=== PATIENT | male | born 1955 | race Caucasian/White ===

== ENCOUNTER 2018-10-10 08:16 | Inpatient (IN) ==
--- NOTE | 2018-09-17 08:39 | History & Physical Report ---
Date of Service September 17, 2018 Date of Surgery: 10-10-18 Assessment & Plan (1) Localized osteoarthritis of right knee: Risks and benefits of procedure discussed in detail today, patient would like to proceed with a Right TKA @ [facility] as scheduled. will obtain cardiac and medical clearance prior to surgery as well as obtain PATs at [facility]. Will resume his home dose of Plavix and ASA post op, f/u 2 weeks post op for routine post- operative care and xray, sooner if having any problems. he is unsure at this time if he would like rehab vs HHPT due to having 13 steps in his home. we will see how he progress in PT. History of Present Illness Chief Complaint: Right knee pain Primary Care Provider: Kaylynn Salinas Mr Lucho Stern is a 63 year old male who complains of right knee pain, presents for pre-op evaluation prior to right total knee replacement on 10-10-18. He states that the symptoms have been chronic non-traumatic and occur intermittently. Currently the patient states that the symptoms are moderate. The pain is described as aching and dull. The symptoms occur intermittently. The patient is experiencing pain medially and anterior knee joint. He rates his worst pain as 8/10, currently 6/10. The symptoms are aggravated by ascending stairs, descending stairs, exercise, kneeling, daily activities, walking. Niranjan states that the symptoms are not relieved by anything in particular. In addition to knee pain he is also experiencing weakness. Patient has had no relief with NSAIDS. Patient has had Supartz injections with little to no relief. at this point has failed conservative measures and would like to proceed with right total knee replacement. Allergies Allergy/AdvReac Type Severity Reaction Status Date / Time Penicillins Allergy Unknown Unknown Verified 09/11/18 15:15 Home Medications Home Medications Medication Instructions Recorded Confirmed Type acetaminophen 1,300 mg PO Q12H PRN 09/11/18 09/11/18 History amlodipine [Norvasc] 10 mg PO QAM 09/11/18 09/11/18 History aspirin [Aspirin Low Dose] 81 mg PO QAM 09/11/18 09/11/18 History atorvastatin 40 mg PO PM 09/11/18 09/11/18 History clopidogrel [Plavix] 75 mg PO QAM 09/11/18 09/11/18 History diclofenac sodium 4 g TOPICAL BID PRN 09/11/18 09/11/18 History hydrochlorothiazide 12.5 mg PO QAM 09/11/18 09/11/18 History lisinopril 20 mg PO QAM 09/11/18 09/11/18 History lorazepam [Ativan] 0.5 mg PO TID PRN 09/11/18 09/11/18 History [id number]-ynwfyxqv-ajmouk 1 tab PO QDD 09/11/18 09/11/18 History [Multivitamin 50 Plus] tadalafil [Cialis] 5 mg PO QAM 09/11/18 09/11/18 History Past Med/Surg History Medical History Anxiety Asymptomatic PVCs Diverticular disease Glaucoma High cholesterol History of stroke 2013 - s/ loss strength left side; Elevated BP; Paraylsis left side; Sent to [facility] in [place]; Thrombectomy of brain. Currently residual is fine motor control of left hand Hypertension Osteoarthritis Surgical History History of surgical procedure on eye proper using laser Used to reduce pressure in both eyes Hx of arthroscopic knee surgery right Family History Aunt Family hx of colon cancer Social History Preferred Language: Vietnamese Communication Ability: Effective Beliefs That Will Affect Care: None Current Living Situation: Spouse Other Information That Helps Us Care for You: No Feels Safe at Home: Yes Safety Concerns: Feels Safe At This Time Smoking Status: Never smoker Hx Alcohol Use: Yes Hx Substance Use: No Review of Systems All systems reviewed & are unremarkable except as noted in HPI & below Constitutional: no fever, no chills and no sweats Respiratory: no cough and no dyspnea Cardiovascular: no chest pain, no dyspnea and no orthopnea Gastrointestinal: no nausea and no vomiting Physical Exam Vital Signs (Past 24 Hours): HT: 5ft 9in Wt: 111.7kg BP: 132/82 Pulse: 76 Constitutional: WD/WN, vitals as above no acute distress Respiratory: normal respiratory effort, lungs clear to auscultation Cardiovascular: RRR, no murmur, no edema Gastrointestinal (Abdomen): normal bowel sounds, soft, nontender, no hepatosplenomegaly Musculoskeletal: Right Knee Exam Ambulates with a limp, overall varus Alignment, no Atrophy or Ecchymosis, mild Effusion, Maximum tenderness Medial joint line and diffuse, negative patellar Apprehension , mild Crepitation with motion, Patella position Neutral, Manyd's Negative, Neda's - lateral positive, Neda's - medial positive, Posterior drawer- Negative, Anterior drawer Negative, Valgus stress Negative, Varus stress Negative, no Extensor lag, Pain with Active range of motion, also passive painful ROM, Range of motion 0/5/125. No pain with active/passive ROM of ankle. Lower Extremity Strength normal. Lower Extremity Neuro-vascular is normal Results & Data Diagnostic Findings Right Knee X-ray: Right knee series showing advanced degenerative changes to the right knee, narrowing of the medial compartment and patello-femoral joint with patellar spurring noted, findings showing joint space narrowing of the medial compartment and patello-femoral joint, osteophyte formation and subchondral sclerosis noted. overall varus alignment. no acute bony pathology noted.
--- NOTE | 2018-09-17 14:41 | Anesthesiology Consultation ---
Date of Service September 17, 2018 Assessment & Plan (1) Encounter for pre-operative examination: - Cardio= 09/03/18= "acceptable risk to proceed" - Per patient, states he was told okay to hold Plavix 7 days prior to surgery by prescriber Chart Review Chart Review: Acceptable Risk for Surgery and Patient seen in Pre Admission Testing Teaching & Discussion Pre-Anesthesia Teaching/Discussion Notes: Instructed NPO after midnight before surgery,except medications with 15 cc of water. Medication instructions provided according to the PAT guidelines. History Surgery Operation Date: 10/10/18 11:40 Proposed Procedures p Right Total Knee Arthroplasty - Tito Ramírez DO Height/Weight Height: 5 ft 9 in Weight: 115.2 kg Allergies Allergy/AdvReac Type Severity Reaction Status Date / Time Penicillins Allergy Unknown Unknown Verified 09/11/18 15:15 Medications Home Medications Medication Instructions Recorded Confirmed Last Taken acetaminophen 1,300 mg PO Q12H PRN 09/11/18 09/11/18 Unknown amlodipine [Norvasc] 10 mg PO QAM 09/11/18 09/11/18 Unknown aspirin [Aspirin Low Dose] 81 mg PO QAM 09/11/18 09/11/18 Unknown atorvastatin 40 mg PO PM 09/11/18 09/11/18 Unknown clopidogrel [Plavix] 75 mg PO QAM 09/11/18 09/11/18 Unknown diclofenac sodium 4 g TOPICAL BID PRN 09/11/18 09/11/18 Unknown hydrochlorothiazide 12.5 mg PO QAM 09/11/18 09/11/18 Unknown lisinopril 20 mg PO QAM 09/11/18 09/11/18 Unknown lorazepam [Ativan] 0.5 mg PO TID PRN 09/11/18 09/11/18 Unknown tbocqsfdtwvv-gjugdypc-mwcymm 1 tab PO QDD 09/11/18 09/11/18 Unknown [Multivitamin 50 Plus] tadalafil [Cialis] 5 mg PO QAM 09/11/18 09/11/18 Unknown Past Medical History Medical History Anxiety Diverticular disease Glaucoma High cholesterol History of stroke 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) S/P THROMBECTOMY + CEREBRAL ANGIOPLASTY; 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 Hypertension Obesity Osteoarthritis PVCs (premature ventricular contractions) OCCASIONAL PALPITATIONS Past Family History Family History Aunt Family hx of colon cancer Past Surgical History Surgical History History of brain surgery THROMBECTOMY + CEREBRAL ANGIOPLASTY 2013 2/2 CVA History of surgical procedure on eye proper using laser 2/2 [place] Hx of arthroscopic knee surgery RIGHT Past Anesthesia History No Hx of Anesthesia Complications and No Family Hx of Anesthesia Complications History of PONV No Motion Sickness Screening History of Motion Sickness: Yes Social History Smoking Status: Never smoker Do You Dip or Chew Tobacco: No Hx Alcohol Use: Yes Alcohol type: beer alcohol intake frequency: a few times a week Hx Substance Use: No Exercise / Class Metabolic Activity II 4-5 Yardwork/Stairs/Walk up hill Review of Systems Patient denies chest pain, shortness of breath, dyspnea on exertion, reflux, cough, wheezing, palpitations. Physical Exam Vital Signs VITALS BP 164/73 P 70 TEMP 98.2 SP02 93%ra RESP 18 PHYSICAL Full neck and c-spine range of motion. Full TMJ range of motion. TMD 3 finger breaths Mallampati Score 3 Dentition: missing sides Lungs: clear throughout to auscultation Cardiac: regular rate and rhythm, occasional extra beats, I/ systolic murmur Spine: normal Carotid arteries: negative bruit Extremities: no edema Thick neck Testing Electrocardiogram Date: 09/17/18 SR with frequent PVC's. NS IVCD. Chest X-Ray Date: 09/17/18 Findings: + NAD Echocardiogram Date: 08/28/18 LVEF 66%. Grade I DD. Trace to mild MR/TR. Close to high normal LV size with increase in wall thickness. Moderately technically difficult study 2/2 poor acoustic windows. Stress Test Date: 08/28/18 Type: nuclear (LEXISCAN) Lexiscan stress test negative for ischemia. No evidence of reversible ischemia. LVEF 50%. Dilated LV cavity. No ventricular or supraventricular ectopy noted with Lexiscan infusion. Laboratory Results Blood Type A Negative 09/17/18 15:05 Antibody Screen NEGATIVE 09/17/18 15:05 Hemoglobin A1c 6.0 % (4.5-5.6) H 09/17/18 15:05 Urine Color Yellow 09/17/18 Unknown Urine Appearance Clear (Clear) 09/17/18 Unknown Urine pH 6.0 (4.5-7.5) 09/17/18 Unknown Ur Specific [place] 1.014 (1.000-1.030) 09/17/18 Unknown Urine Protein Negative (Negative) 09/17/18 Unknown Urine Glucose (UA) Negative (Negative) 09/17/18 Unknown Urine Ketones Negative (Negative) 09/17/18 Unknown Urine Nitrite Negative (Negative) 09/17/18 Unknown Ur Leukocyte Esterase Negative (Negative) 09/17/18 Unknown Urine WBC (Auto) 0 /hpf (0-5) 09/17/18 Unknown Urine RBC (Auto) 5-10 /hpf (0-4) H 09/17/18 Unknown U Hyaline Cast (Auto) 0 /lpf (0-5) 09/17/18 Unknown U Epithel Cells (Auto) 0-5 /lpf (0-5) 09/17/18 Unknown Urine Bacteria (Auto) Negative (Negative) 09/17/18 Unknown 09/17/18 Unknown Urine Culture - Final Urine,Clean Catch Gram negative bacilli 09/17/18 URINE CULTURE no sensitivities to follow 08/22/18 WBC 7.76 H/H 14.6/44.2 PLATELETS 194 SODIUM 139 POTASSIUM 3.3 CHLORIDE 104 CO2 23.7 BUN 19.7 CREATININE 1.03 GLUCOSE 101 PT 11.2 PTT 24.9 INR 1.0
--- NOTE | 2018-09-17 15:00 | PAT Medication Instructions ---
Medication Instructions Date of Service September 17, 2018 Home Medications acetaminophen 1,300 mg PO Q12H PRN amlodipine [Norvasc] 10 mg PO QAM aspirin [Aspirin Low Dose] 81 mg PO QAM atorvastatin 40 mg PO PM clopidogrel [Plavix] 75 mg PO QAM diclofenac sodium 4 g TOPICAL BID PRN hydrochlorothiazide 12.5 mg PO QAM lisinopril 20 mg PO QAM lorazepam [Ativan] 0.5 mg PO TID PRN [id number]-[id number]-[id number] 1 tab PO QDD tadalafil [Cialis] 5 mg PO QAM ASK your prescriber and surgeon aspirin [Aspirin Low Dose] 81 mg PO QAM clopidogrel [Plavix] 75 mg PO QAM STOP taking 24 hours before surgery diclofenac sodium 4 g TOPICAL BID PRN DO NOT take the morning of surgery hydrochlorothiazide 12.5 mg PO QAM lisinopril 20 mg PO QAM tadalafil [Cialis] 5 mg PO QAM Take morning of surgery With a small sip of water, OTHERWISE NOTHING TO EAT OR DRINK AFTER MIDNIGHT: acetaminophen 1,300 mg PO Q12H PRN (okay to take up to 4 hours prior to surgery if needed) amlodipine [Norvasc] 10 mg PO QAM lorazepam [Ativan] 0.5 mg PO TID PRN (if needed) Take evening before surgery acetaminophen 1,300 mg PO Q12H PRN (if needed) atorvastatin 40 mg PO PM lorazepam [Ativan] 0.5 mg PO TID PRN (if needed) multivitamin 50 plus 1 tab PO QDD Other Notes If you have any questions please call us at [phone] or [phone] or [phone] or [phone]
--- NOTE | 2018-09-17 15:19 | XRay Report ---
XR chest Pre-admission PA/Lat CLINICAL HISTORY: pat preoperative COMPARISON STUDY: No previous studies for comparison. FINDINGS: The bones soft tissues and hemidiaphragms are normal. The cardiomediastinal silhouette is n ormal. The lungs are clear. The pulmonary vasculature is normal. IMPRESSION: Negative chest. The above report was generated using voice recognition software. It may contain grammatical, syntax or spelling errors. Electronically signed by: Luis Ayala M.D. 09/17/2018 3:18 PM
[2018-09-17 16:37] LABS: Appearance Urine Clear (Clear); Bacteria Urine Automated Negative (Negative); Bilirubin Urine Negative (Negative); Blood Urine 1+ (Negative); Cast Urine Automated 0 /lpf (0-5); Color Urine Yellow; Epithelial Cell Urine Auto 0-5 /lpf (0-5); Glucose Urine UA Negative (Negative); Ketones Urine Negative (Negative); Leukocyte Esterase Urine Negative (Negative); Nitrite Urine Negative (Negative); Protein Urine Negative (Negative); Specific Gravity Urine 1.014 (1.000-1.030); Urobilinogen Urine Negative (Negative); WBC Urine Automated 0 /hpf (0-5)
[2018-09-18 06:17] LABS: Estimated Average Glucose 126 mg/dl
[~2018-10-10 08:16] MED LIST: ACETAMINOPHEN 500 MG TAB PO SCH; BUPIVACAINE 0.5 % 5 MG/1 ML PF 10ML VIAL ONE; CLINDAMYCIN 600 MG/54 ML BAG IV SCH; CeleBREX 200 MG CAP PO SCH; FAMOTIDINE 20 MG TAB PO SCH; GABAPENTIN 300 MG x 2 PO SCH; LR 500ML BOLUS, THEN 15ML/HR IV SCH; METOCLOPRAMIDE HCL 10 MG TABLET PO SCH; ROPIVACAINE 0.5% 5 MG/ML 30 ML VIAL ONE; ROPIVACAINE 0.5% HCL/PF 150 MG, BUPIVACAINE 0.5% MPF 30 ML, EPINEPHrine 30MG/30ML (OR U... INFIL SCH; TRANEXAMIC ACID 1,000 MG **IV Intra-op IV SCH; TRANEXAMIC ACID 1,000 MG **IV Pre-op IV SCH; dexAMETHasone 4 MG TAB PO SCH
[2018-10-10] MEDS ORDERED: MIDAZOLAM HCL 1 MG/ML 2ML VIAL ONE (09:13)
[2018-10-10] MEDS ORDERED: fentaNYL citrate 100 MCG/2 ML VIAL ONE ×2 (09:13→11:47)
--- NOTE | 2018-10-10 09:49 | History & Physical Bridge Note ---
Date of Service October 10, 2018 History & Physical Bridge Note I have examined the patient, reviewed the History & Physical and in the interval since the performance of the History & Physical I have noted the following changes of clinical significance: no changes noted
[2018-10-10] MEDS ORDERED: ORTHO JOINT ANESTHETIC ONE (10:20)
[2018-10-10] MEDS ORDERED: POVIDONE-IODINE OP SOLN 30 ML BTL ONE (10:20)
[2018-10-10] MEDS ORDERED: BACITRACIN INJ 50,000 UNIT VIAL ONE (10:21)
[2018-10-10] MEDS ORDERED: LIDOCAINE HCL 2% 2 ML VIAL/AMP(20MG/ML) INFIL ONE (11:34)
[2018-10-10] MEDS ORDERED: SUCCINYLCHOLINE CHLORIDE 20 MG/ML 10 ML VIAL ONE (11:34)
[2018-10-10] MEDS ORDERED: PROPOFOL IV EMULSION 10 MG/ML 20 ML VIAL IV ONE (11:34)
[2018-10-10] MEDS ORDERED: ePHEDrine sulfate 50 MG/ML AMP IV PRN (11:44)
[2018-10-10] MEDS ORDERED: HYDROmorphone INJ 2 MG/ML SYR/VIAL IV PRN (11:44)
[2018-10-10] MEDS ORDERED: ATROPINE SULFATE 0.1 MG/ML 10ML SYR IV PRN (11:44)
[2018-10-10] MEDS ORDERED: ONDANSETRON INJ 2 MG/ML 2 ML VIAL ONE (11:52)
[2018-10-10] MEDS ORDERED: DEXAMETHASONE SOD INJ 4 MG/ML VIAL ONE ×2 (11:52→17:01)
--- NOTE | 2018-10-10 12:23 | Operative Report ---
Post Operative Report Pre & Post Diagnosis Operation Date: 10/10/18 11:00 Pre-Op Diagnosis: Right Knee Osteoarthritis Post-Op Diagnosis: Right Knee Osteoarthritis Procedure Operation Date: 10/10/18 11:00 Actual Procedures p Right Total Knee Arthroplasty(Right) utilizing [employer] journey 2 patient matched total knee arthroplasty size 6 femur 6 tibia 11 polyethylene 35 oval patella- Tito Ramírez DO Surgeon Tito Ramírez DO Consumer Loan Officer Chauncey CHAPMAN Estimated Blood Loss 5 Findings Consistent with Post-Op Diagnosis Patient presents with ongoing planes of pain about the right knee no response to conservative management times surgery above findings were noted patient had subchondral sclerosis marginal osteophytes subchondral cystic changes eburnated bone to bone changes tricompartmentally with varus alignment of the knee pseudo- ligamentous laxity as well as a moderate to large effusion Specimens Bone and cartilage Drains Medium bore Hemovac Complications none Disposition Accompanied Patient To Recovery: No Disposition: Recovery Room Indications Patient presents with severe DJD about the right knee no response to conservative management and physical therapy anti-inflammatories relative rest activity modification corticosteroid injections Visco supplementations presents at failing but conservative management the above noted intraoperative findings were noted. Description of Procedure After proper prepping and draping of the Right lower extremity anterior midline incision was made over the region of the extensor extensor mechanism after meticulous hemostasis was obtained and maintained in subcutaneous tissues a medial parapatellar incision was made The patella was subluxed lateralward the medial lateral gutter were cleaned from any hypertrophic synovitis and scar tissue of the distal femoral block was placed and the distal femoral osteotomy cut was made subsequently the chamfers anterior and posterior osteotomy cuts were made utilizing the 4-in-1 block the tibia was subsequently subluxed anteriorward medial and ateral meniscal remnants were excised in their entirety remnants of the anterior and posterior cruciate ligaments were excised in their entirety excellent exposure of the proximal tibia was obtained the tibial osteotomy guide was placed on the proximal tibial osteotomy cut was made once again the knee was irrigated with copious amounts of sterile saline solution the patella was subsequently everted lateralward thickened scar tissue around the patella was removed the patella was subsequently cut utilizing a freehand technique and was drilled prepared for final preparation and placement of patella socially flexion-extension gaps were checked and the equal and symmetric trials were placed to the appropriate femoral and tibial trials with poly-spacer being placed for equal flexion and extension gaps and full range of motion including extension to 0 and flexion to 140 the trial components after having been taken to recovery range of motion was subsequently removed meticulous hemostasis was obtained and maintained subsequently a knee block injection of joint cocktail including ropivacaine 0.5% 150 mg. Bupivacaine 0.5% epinephrine 1-200,030 mL's toradol 30 mg dexamethasone 4 mg ketamine 10 mg clonidine 100 micrograms normal saline solution 30 mg was infiltrated into the soft tissues of the posterior knee medial lateral gutters and periosteal synovium special attention was paid to protect neurovascular structures at all times subsequently trial components having been removed the knee was irrigated with sterile saline solution. debris was removed the proximal tibia was subsequently prepared and was made ready for the placement of the tibial component tibial component was also cemented and tamped into position the femoral component was subsequently placed and cemented in the position the patellar component was subsequently cemented in position because hemostasis once again obtained and maintained wound having been thoroughly irrigated with debridement and debridement lavage was performed as well as a medial parapatellar incision closed with #1 Vicryl in interrupted fashion subcutaneous was closed with #2 Vicryl skin was closed with skin clips. PA-C was necessary for prepping and drapping as well as wound closure of deep fascia Sub cutaneous tissue and skin and was necessary for the case. A sterile compressive dressing was placed patient was taken to recovery in stable condition of report dictated by Darrell I attest to the content of the Intraoperative Record and any orders documented therein. Any exceptions are noted below. I attest to the content of the Intraoperative Record and any orders documented therein. Any exceptions are noted below.
--- NOTE | 2018-10-10 14:02 | Anesthesiology Progress Note ---
Date of Service October 10, 2018 Anesthesia Post Procedure Vital Signs Vital Signs: Temp Pulse Pulse Resp BP Pulse Ox 10/10/18 13:45 78 18 127/68 95 10/10/18 13:40 36.8 C 83 14 113/67 97 10/10/18 13:30 82 20 125/80 97 10/10/18 13:20 87 15 112/80 98 10/10/18 13:10 85 19 124/74 98 10/10/18 13:03 36.7 C 89 25 H 118/74 89 L 10/10/18 08:49 37 C 95 H 20 174/97 H 97 Pain Intensity Bilateral Knee: Pain Intensity: 4 Right Knee: Pain Intensity: 0 Notes Mental Status: alert / awake / arousable Patient Amnestic to Procedure: Yes Nausea / Vomiting: adequately controlled Pain: adequately controlled Airway Patency, RR, SpO2: stable & adequate BP & HR: stable & adequate Hydration State: stable & adequate Anesthetic Complications: no major complications apparent and Pt Satisfied with anesthetic care
[2018-10-10] MEDS ORDERED: ONDANSETRON INJ 2 MG/ML 2 ML VIAL IV PRN (14:03)
[2018-10-10] MEDS ORDERED: ALUMINUM/MAGNESIUM SUSP 30 ML UDC PO PRN (14:03)
[2018-10-10] MEDS ORDERED: HYDROmorphone INJ 0.5 MG/0.5 ML SYR IV PRN (14:03)
[2018-10-10] MEDS ORDERED: METOCLOPRAMIDE HCL INJ 5 MG/ML 2 ML VIAL IV PRN (14:03)
[2018-10-10] MEDS ORDERED: MAGNESIUM HYDROXIDE SUSP 30 ML UDC PO PRN (14:03)
[2018-10-10] MEDS ORDERED: NALOXONE HCL 0.4 MG/1 ML VIAL/CARP IV PRN (14:03)
[2018-10-10] MEDS ORDERED: BISACODYL 10 MG SUPP PR PRN (14:03)
[2018-10-10] MEDS ORDERED: LORazepam 0.5 MG TAB PO PRN (14:03)
--- NOTE | 2018-10-10 14:14 | XRay Report ---
RIGHT KNEE 2 VIEWS History: Right total knee arthroplasty. Degenerative arthritis. Postop. FINDINGS: The patient is status post a right total knee arthroplasty. The hardware is intact. No frac ture or dislocation. Skin tameka and surgical drains are in place. IMPRESSION: Right total knee arthroplasty. No evidence for hardware complication. Electronically signed by: Biju Rodriguez M.D. 10/10/2018 2:12 PM
[2018-10-10] MEDS: SODIUM CHLORIDE 0.9% 1000ML 1,000 ML IV SCH ×2 (14:25→23:28)
[2018-10-10] MEDS ORDERED: PHENYLEPHRINE 100MCG/ML 5ML SYR ONE (15:23)
[2018-10-10] MEDS ORDERED: ROCURONIUM BROMIDE 10 MG/ML 5 ML VIAL ONE (15:23)
[2018-10-10] MEDS ORDERED: PHENYLEPHRINE HCL 10 MG/ML VIAL ONE (15:36)
[2018-10-10] MEDS: ACETAMINOPHEN 500 MG TAB PO SCH ×2 (16:08→21:29)
--- NOTE | 2018-10-10 16:18 | Consultation ---
Date of Consultation October 10, 2018 Assessment & Plan (1) Localized osteoarthritis of right knee: s/p right TKA, tolerated well pain control, PT/OT, DVT prophylaxis per ortho will monitor for bowel function, encourage ISB to get off of oxygen check labs in the AM (2) HTN (hypertension): continue home regimen of Lisinopril, HCTZ, Norvasc (3) History of ischemic right MCA stroke: no residual deficits continue aspirin, resume Plavix when okay with ortho (4) Anxiety: Ativan PRN (5) Dyslipidemia: Atorvastatin History of Present Illness Reason for Consultation: Medical management Requesting Physician: Dr. Ramírez Attending Physician: Tito Ramírez, DO History of Present Illness 63 yo male with history of ischemic stroke in 2013 and now with long standing history of osteoarthritis in the right knee, presents to [facility] for elective right total knee arthroplasty. Surgery performed this morning, no complications, minimal blood loss. He was sent to the surgical floor in stable condition. Currently without any chest pain or difficulty breathing. He ate his entire lunch, no abdominal pain, no nausea, no vomiting. His right knee is not in pain currently and he has some mild discomfort in his thigh that he attributes to the torniquete. He says that other than his right knee pain prior to surgery, he was doing well. No issues with chest pain. He had a stress test with cardiology prior to the surgery which was negative for any ischemia. His routine lab work showed that blood counts, electrolytes and renal function were stable. In 2013 he presented to [facility] with hypertensive emergency. After his blood pressure was lowered he developed left sided paralysis. He was flown to [facility] and underwent a thrombectomy. He regained nearly all function on the left side, only has some residual fine motor issues in his left hand. Allergies Allergy/AdvReac Type Severity Reaction Status Date / Time Penicillins Allergy Unknown Unknown Verified 10/10/18 08:41 Home Medications Home Medications Medication Instructions Recorded Confirmed Type acetaminophen 1,300 mg PO Q12H PRN 09/11/18 10/10/18 History amlodipine [Norvasc] 10 mg PO QAM 09/11/18 10/10/18 History aspirin [Aspirin Low Dose] 81 mg PO QAM 09/11/18 10/10/18 History atorvastatin 40 mg PO PM 09/11/18 10/10/18 History clopidogrel [Plavix] 75 mg PO QAM 09/11/18 10/10/18 History diclofenac sodium 4 g TOPICAL BID PRN 09/11/18 10/10/18 History hydrochlorothiazide 12.5 mg PO QAM 09/11/18 10/10/18 History lisinopril 20 mg PO QAM 09/11/18 10/10/18 History lorazepam [Ativan] 0.5 mg PO TID PRN 09/11/18 10/10/18 History owwhajismkyl-ahsotxmv-oeayht 1 tab PO QDD 09/11/18 10/10/18 History [Multivitamin 50 Plus] tadalafil [Cialis] 5 mg PO QAM 09/11/18 10/10/18 History latanoprost 1 ophthalmic insert INSTIL DAILY 10/10/18 10/10/18 History Patient History Family History Aunt Family hx of colon cancer Social History Preferred Language: Yoruba Communication Ability: Effective Beliefs That Will Affect Care: None Current Living Situation: Spouse Other Information That Helps Us Care for You: No Feels Safe at Home: Yes Safety Concerns: Feels Safe At This Time Smoking Status: Never smoker Hx Alcohol Use: Yes Hx Substance Use: No Review of Systems Constitutional: no fever, no chills, no sweats, no fatigue and no weakness Eyes: no blind spots, no diplopia, no dry eyes and no eye pain Ear, Nose, Mouth, Throat: no ear pain, no ear discharge, no hearing loss, no dizziness, no nasal discharge, no epistaxis and no snoring Respiratory: no cough, no dyspnea, no dyspnea on exertion, no hemoptysis and no pain with cough Cardiovascular: no chest pain, no chest pain at rest, no dyspnea, no orthopnea, no palpitations, no syncope, no edema and no claudication Gastrointestinal: no abdominal pain, no nausea, no vomiting, no constipation and no diarrhea/loose stools Genitourinary (Male): no dysuria, no difficulty urinating, no urinary frequency, no urinary hesitancy and no urinary incontinence Musculoskeletal: + joint pain (right knee); no back pain, no neck pain, no deformity, no swelling, no myalgia and no body aches Integumentary: no acne, no rash, no lesions, no new lesions and no wounds Neurologic: no gait abnormality, no falls, no localized weakness, no loss of sensation, no dizziness, no headache(s), no abnormal speech and no memory loss Psychiatric: no behavioral changes, no depression, no anxiety and no confusion Endocrine: no fatigue, no polydipsia, no polyphagia and no polyuria Hematologic / Lymphatic: no easy bleeding, no coagulopathy, no lymphadenopathy and no night sweats Physical Exam Vital Signs (Past 24 Hours): Last Vital Signs Temp 36.6 C 10/10/18 15:58 Pulse 82 10/10/18 15:58 Resp 22 10/10/18 15:58 BP 133/69 10/10/18 15:58 Pulse Ox 95 10/10/18 15:58 Constitutional: WD/WN, vitals as above Eyes: PERRL, conjunctivae normal, anicteric sclerae ENMT: external ear and nose normal, oropharynx normal Neck: trachea midline, no thyromegaly Respiratory: normal respiratory effort, lungs clear to auscultation Cardiovascular: RRR, no murmur, no edema Gastrointestinal (Abdomen): normal bowel sounds, soft, nontender, no hepatosplenomegaly Musculoskeletal: no cyanosis or clubbing, extremities motor strength 5/5 Extremities: + limited ROM of extremities (right knee); + extremities abnormal to inspection (right knee swollen) Skin: no rashes, warm and dry Neurologic: patellar DTR's 2+ bilat, sensation intact and PERRL, EOMI, accommodation nl, no face palsy, no dysarthria Psychiatric: A+Ox3, euthymic affect Lymphatic: no cervical or axillary lymphadenopathy Results & Data Medications Administered Current Inpatient Medications Acetaminophen (Tylenol) 1,000 mg PO Q8 [facility] Stop: 11/09/18 14:02 Last Admin: 10/10/18 16:08 Dose: Not Given Documented by: Al Hydrox/Mg Hydrox/Simethicone (Maalox) 15 ml PO Q4H PRN PRN Reason: Heartburn Stop: 11/09/18 14:02 Amlodipine Besylate (Norvasc) 10 mg PO QAM MATT Stop: 11/10/18 08:59 Aspirin (Ecotrin Ectab) 81 mg PO BID MATT Stop: 11/09/18 20:59 Atorvastatin Calcium (Lipitor) 40 mg PO PM [facility] Stop: 11/09/18 20:59 Bisacodyl (Dulcolax) 10 mg NE DAILY PRN PRN Reason: Constipation Stop: 11/09/18 14:02 Clopidogrel Bisulfate (Plavix) 75 mg PO QAM [facility] Stop: 11/10/18 08:59 Docusate Sodium (Colace) 100 mg PO BID [facility] Stop: 11/09/18 20:59 Ferrous Gluconate (Ferrous Gluconate) 324 mg PO BIDM [facility] Stop: 11/09/18 16:59 Last Admin: 10/10/18 17:35 Dose: 324 mg Documented by: Hydromorphone HCl (Dilaudid) 0.5 mg IV Q4H PRN PRN Reason: Pain Stop: 10/24/18 14:02 Sodium Chloride (Nss 1000ml) 1,000 mls @ 100 mls/hr IV .Q10H [facility] Stop: 10/11/18 06:00 Last Admin: 10/10/18 14:25 Dose: 100 mls/hr Documented by: Clindamycin Phosphate 600 mg/ (Dextrose) 54 mls @ 100 mls/hr IV Q8H [facility] Stop: 10/11/18 04:33 Latanoprost (Xalatan Oph) 1 drops OP DAILY [facility] Stop: 11/10/18 08:59 [facility]) [facility]: 11/10/18 08:59 Lorazepam (Ativan) 0.5 mg PO TID PRN PRN Reason: Anxiety Stop: 11/09/18 14:02 Magnesium Hydroxide (Milk Of Magnesia) 30 ml PO Q6H PRN PRN Reason: Constipation Stop: 11/09/18 14:02 Metoclopramide HCl (Reglan) 10 mg IV Q6H PRN PRN Reason: Nausea And Vomiting Stop: 11/09/18 14:02 Multivitamins (Multivitamin Tab) 1 tab PO [facility] Stop: 11/10/18 08:59 Naloxone HCl (Narcan) 0.1 mg IV Q5M PRN PRN Reason: Oversedation/Resp Depression Stop: 11/09/18 14:02 Ondansetron HCl (Zofran) 4 mg IV Q6H PRN PRN Reason: Nausea And Vomiting Stop: 11/09/18 14:02 Oxycodone HCl (Roxicodone Immediate Rel) 5 - 10 mg PO Q4H PRN PRN Reason: Pain Stop: 10/24/18 14:02 Sennosides (Senokot) 17.2 mg PO HS MATT Stop: 11/09/18 20:59
[2018-10-10] MEDS: FERROUS GLUCONATE 324 MG TAB PO SCH (17:35)
[2018-10-10] MEDS: CLINDAMYCIN 600 MG in DEXTROSE 5% 50 ML IV SCH (19:54)
[2018-10-10] MEDS: ASPIRIN 81 MG ECTAB PO SCH (20:04)
[2018-10-10] MEDS: DOCUSATE SODIUM 100 MG CAP PO SCH (20:04)
[2018-10-10] MEDS ORDERED: LATANOPROST 0.005% OP SOLN 2.5 ML BTL OP SCH ×2 (21:00)
[2018-10-10] MEDS ORDERED: ATORVASTATIN 40 MG TAB PO SCH (21:00)
[2018-10-10] MEDS ORDERED: SENNA 8.6 MG TAB PO SCH (21:00)
[2018-10-10] MEDS: OXYCODONE HCL IR 5 MG TAB (IMMEDIATE RELEASE) PO PRN (23:28)
[2018-10-11] MEDS: CLINDAMYCIN 600 MG in DEXTROSE 5% 50 ML IV SCH (04:02)
[2018-10-11] MEDS: OXYCODONE HCL IR 5 MG TAB (IMMEDIATE RELEASE) PO PRN ×2 (04:39→08:26)
[2018-10-11] MEDS: ACETAMINOPHEN 500 MG TAB PO SCH (05:20)
[2018-10-11 06:13] LABS: Mean Corpuscular Hgb Conc 33.3 g/dL (32-36); Mean Corpuscular Volume 92.1 fL (80-100); Mean Platelet Volume 11.1 fL (7.4-10.4); Platelet Count 208 K/uL (130-400); RDW Coefficient of Variation 13.2 % (11.5-14.5); RDW Standard Deviation 44.1 fL (36.4-46.3); Red Blood Count 3.91 M/uL (4.7-6.1); White Blood Count 16.03 K/uL (4.8-10.8)
[2018-10-11 06:44] LABS: BUN Creatinine Ratio 17.6 (10-20); Calcium 8.2 mg/dl (8.5-10.1); Est GFR (Non-African American) 66.4; Potassium 4.3 mmol/L (3.5-5.1)
--- NOTE | 2018-10-11 07:49 | Orthopedic Progress Note ---
Date of Service October 11, 2018 Assessment & Plan (1) Status post total right knee replacement: POD #1 s/p Right TKA pt/ot dvt proph with NELSON/SCD/ASA and Plavix plan for d/c home with HHPT, possibly after PT today. may d/c with hemovac if over 100cc/8 hours and have home nursing pull tomorrow. Subjective POD #1 s/p Right TKA denies CP/SOB denies Fever/Chills pain currently 09/16 Physical Exam Vital Signs (Past 24 Hours): Last Vital Signs Temp 37.0 C 10/11/18 07:00 Pulse 66 10/11/18 07:00 Resp 18 10/11/18 07:00 BP 119/62 10/11/18 07:00 Pulse Ox 98 10/11/18 07:00 Constitutional: WD/WN, vitals as above no acute distress Musculoskeletal: Right Knee: NVDI, calf SNT, negative marli sign. DP palpable, able to wiggle toes/ankle movement without difficulty. dressing clean dry and intact. Vital Signs Temp 37.0 C 10/11/18 07:00 Pulse 66 10/11/18 07:00 Resp 18 10/11/18 07:00 BP 119/62 10/11/18 07:00 Pulse Ox 98 10/11/18 07:00 Intake & Output 10/10/18 10/11/18 10/11/18 18:59 06:59 18:59 Intake Total 1400 / 3567 2167 / 3567 Output Total 530 / 2530 2000 / 2530 Balance 870 / 1037 167 / 1037 Weight 115.411 kg Intake: IV 850 / 1917 1067 / 1917 Cleocin 600 mg In D5w 50 ml @ 108 / 108 100 mls/hr IV Q8H MATT Rx#: [id number] CLEOCIN 600 mg In 54 ml @ 100 54 / 54 mls/hr IV PREO P MATT Rx#: [id number] Lr 1,000 ml @ 15 mls/hr IV . 850 / 850 Q24H MATT Rx#:[id number] Nss 1000ML 1,0 00 ml @ 100 mls/ 905 / 905 hr IV .Q10H SC H Rx#:[id number] IV Perioperative 550 / 550 Oral 1100 / 1100 Output: Urine 1275 / 1275 Estimated Blood Loss 5 / 5 Drain Output 525 / 1250 725 / 1250 Right Knee 525 / 1250 725 / 1250 Other: # Unmeasured Voi ds 1 Results & Data Laboratory Results Laboratory Results WBC 16.03 K/uL (4.8-10.8) H 10/11/18 06:00 RBC 3.91 M/uL (4.7-6.1) L 10/11/18 06:00 Hgb 12.0 g/dL (14.0-18.0) L 10/11/18 06:00 Hct 36.0 % (42-52) L 10/11/18 06:00 MCV 92.1 fL (80-100) 10/11/18 06:00 MCH 30.7 pg (25-34) 10/11/18 06:00 MCHC 33.3 g/dL (32-36) 10/11/18 06:00 RDW Std Deviation 44.1 fL (36.4-46.3) 10/11/18 06:00 RDW Coeff of Ze 13.2 % (11.5-14.5) 10/11/18 06:00 Plt Count 208 K/uL (130-400) 10/11/18 06:00 MPV 11.1 fL (7.4-10.4) H 10/11/18 06:00 Sodium 138 mmol/L (136-145) 10/11/18 06:00 Potassium 4.3 mmol/L (3.5-5.1) 10/11/18 06:00 Chloride 105 mmol/L (98-107) 10/11/18 06:00 Carbon Dioxide 26 mmol/L (21-32) 10/11/18 06:00 Anion Gap 7.0 (3-11) 10/11/18 06:00 BUN 21 mg/dl (7-18) H 10/11/18 06:00 Creatinine 1.17 mg/dl (0.6-1.4) 10/11/18 06:00 Est Cr Clr Drug Dosing 82.0 ml/min 10/11/18 06:00 Est GFR ( Amer) 77.0 10/11/18 06:00 Est GFR (Non-Af Amer) 66.4 10/11/18 06:00 BUN/Creatinine Ratio 17.6 (10-20) 10/11/18 06:00 Glucose 127 mg/dl (70-99) H 10/11/18 06:00 Estimat Average Glucose 126 mg/dl 09/17/18 15:05 Hemoglobin A1c 6.0 % (4.5-5.6) H 09/17/18 15:05 Calcium 8.2 mg/dl (8.5-10.1) L 10/11/18 06:00 Albumin 4.2 gm/dl (3.4-5.0) 09/17/18 15:05 Urine Color Yellow 09/17/18 Unknown Urine Appearance Clear (Clear) 09/17/18 Unknown Urine pH 6.0 (4.5-7.5) 09/17/18 Unknown Ur Specific [place] 1.014 (1.000-1.030) 09/17/18 Unknown Urine Protein Negative (Negative) 09/17/18 Unknown Urine Glucose (UA) Negative (Negative) 09/17/18 Unknown Urine Ketones Negative (Negative) 09/17/18 Unknown Urine Blood 1+ (Negative) H 09/17/18 Unknown Urine Nitrite Negative (Negative) 09/17/18 Unknown Urine Bilirubin Negative (Negative) 09/17/18 Unknown Urine Urobilinogen Negative (Negative) 09/17/18 Unknown Ur Leukocyte Esterase Negative (Negative) 09/17/18 Unknown Urine WBC (Auto) 0 /hpf (0-5) 09/17/18 Unknown Urine RBC (Auto) 5-10 /hpf (0-4) H 09/17/18 Unknown U Hyaline Cast (Auto) 0 /lpf (0-5) 09/17/18 Unknown U Epithel Cells (Auto) 0-5 /lpf (0-5) 09/17/18 Unknown Urine Bacteria (Auto) Negative (Negative) 09/17/18 Unknown Blood Type A Negative 09/17/18 15:05 Antibody Screen NEGATIVE 09/17/18 15:05 Diagnostic Findings RIGHT KNEE 2 VIEWS History: Right total knee arthroplasty. Degenerative arthritis. Postop. FINDINGS: The patient is status post a right total knee arthroplasty. The hardware is intact. No fracture or dislocation. Skin tameka and surgical drains are in place. IMPRESSION: Right total knee arthroplasty. No evidence for hardware complication.
--- NOTE | 2018-10-11 08:19 | Anesthesiology Progress Note ---
Date of Service October 11, 2018 Anesthesia Post Procedure Vital Signs Vital Signs: Temp Pulse Pulse Resp BP Pulse Ox 10/11/18 07:00 37.0 C 66 18 119/62 98 10/11/18 03:49 37.1 C 70 18 149/82 H 98 10/10/18 23:12 36.7 C 71 18 119/72 97 10/10/18 19:05 36.8 C 72 19 130/79 98 10/10/18 16:49 36.6 C 69 20 135/74 98 10/10/18 15:58 36.6 C 82 22 133/69 95 10/10/18 14:55 36.3 C L 71 19 136/77 100 10/10/18 14:30 77 16 116/69 98 10/10/18 14:00 36.4 C L 81 18 132/71 98 10/10/18 13:45 78 18 127/68 95 10/10/18 13:40 36.8 C 83 14 113/67 97 10/10/18 13:30 82 20 125/80 97 10/10/18 13:20 87 15 112/80 98 10/10/18 13:10 85 19 124/74 98 10/10/18 13:03 36.7 C 89 25 H 118/74 89 L 10/10/18 08:49 37 C 95 H 20 174/97 H 97 Pain Intensity Bilateral Knee: Pain Intensity: 3 Right Knee: Pain Intensity: 3 Notes Mental Status: alert / awake / arousable and participated in evaluation Patient Amnestic to Procedure: Yes Nausea / Vomiting: adequately controlled Pain: adequately controlled Airway Patency, RR, SpO2: stable & adequate BP & HR: stable & adequate Hydration State: stable & adequate Anesthetic Complications: no major complications apparent
[2018-10-11] MEDS: FERROUS GLUCONATE 324 MG TAB PO SCH (08:23)
[2018-10-11] MEDS: ASPIRIN 81 MG ECTAB PO SCH (08:24)
[2018-10-11] MEDS: DOCUSATE SODIUM 100 MG CAP PO SCH (08:24)
[2018-10-11] MEDS ORDERED: AMLODIPINE BESYLATE 5 MG TAB PO SCH (09:00)
[2018-10-11] MEDS ORDERED: LATANOPROST 0.005% OP SOLN 2.5 ML BTL OP SCH (09:00)
[2018-10-11] MEDS ORDERED: MULTIVITAMIN TAB PO SCH (09:00)
[2018-10-11] MEDS ORDERED: CLOPIDOGREL BISULFATE 75 MG TAB PO SCH (09:00)
[2018-10-11] MEDS ORDERED: LISINOPRIL 20 MG TAB PO SCH (09:00)
--- NOTE | 2018-10-11 14:28 | Hospitalist Progress Note ---
Date of Service October 11, 2018 Assessment & Plan (1) Localized osteoarthritis of right knee: s/p right TKA, tolerated well pain control, PT/OT, DVT prophylaxis per ortho labs stable this morning eating well, breathing well on room air, no chest pain vitals stable clear for d/c from medical perspective (2) HTN (hypertension): continue home regimen of Lisinopril, HCTZ, Norvasc BP stable (3) History of ischemic right MCA stroke: no residual deficits continue aspirin and Plavix (4) Anxiety: Ativan PRN (5) Dyslipidemia: Atorvastatin Subjective patient feeling great, ready to go home ortho plans to discharge with home health labs stable, vitals stable, eating well, no chest pain, no dyspnea Review of Systems All systems reviewed & are unremarkable except as noted in HPI & below Musculoskeletal: + joint pain (right knee) Physical Exam Vital Signs (Past 24 Hours): Last Vital Signs Temp 37.3 C 10/11/18 11:14 Pulse 70 10/11/18 11:14 Resp 16 10/11/18 11:14 BP 121/64 10/11/18 11:14 Pulse Ox 98 10/11/18 11:14 Constitutional: WD/WN, vitals as above Eyes: PERRL, conjunctivae normal, anicteric sclerae ENMT: external ear and nose normal, oropharynx normal Neck: trachea midline, no thyromegaly Respiratory: normal respiratory effort, lungs clear to auscultation Cardiovascular: RRR, no murmur, no edema Gastrointestinal (Abdomen): normal bowel sounds, soft, nontender, no hepatosplenomegaly Musculoskeletal: no cyanosis or clubbing, extremities motor strength 5/5 Extremities: + limited ROM of extremities (right knee); + extremities abnormal to inspection (right knee swollen) Skin: no rashes, warm and dry Neurologic: patellar DTR's 2+ bilat, sensation intact and PERRL, EOMI, accomm odation nl, no face palsy, no dysarthria Psychiatric: A+Ox3, euthymic affect Lymphatic: no cervical or axillary lymphadenopathy Results & Data Laboratory Results Laboratory Results - last 24 hr 10/11/18 10/11/18 10/11/18 06:00 06:00 06:00 WBC 16.03 H RBC 3.91 L Hgb 12.0 L Hct 36.0 L MCV 92.1 MCH 30.7 MCHC 33.3 RDW Std Deviation 44.1 RDW Coeff of Ze 13.2 Plt Count 208 MPV 11.1 H Sodium 138 Potassium 4.3 Chloride 105 Carbon Dioxide 26 Anion Gap 7.0 BUN 21 H Creatinine 1.17 Est Cr Clr Drug Dosing 82.0 Est GFR ( Amer) 77.0 Est GFR (Non-Af Amer) 66.4 BUN/Creatinine Ratio 17.6 Glucose 127 H Calcium 8.2 L Hepatitis C Ab Screen Neg
--- NOTE | 2018-10-17 01:52 | Discharge Summary ---
DISCHARGE DIAGNOSIS: Right knee osteoarthritis. SECONDARY DIAGNOSES: Anxiety, history of premature ventricular contractions, diverticular disease, glaucoma, hypercholesterolemia, history of cerebrovascular accident in 2014, hypertension, osteoarthritis. CONSULTS: Castillo Francis DO COMPLICATIONS: None. PROCEDURES: Right total knee arthroplasty performed by Dr. Ramírez on 10/10/2018. BRIEF HISTORY: As dictated in history and physical. HOSPITAL SUMMARY: The patient was admitted on the above-noted date and had the above-noted surgery performed, which he tolerated well. [facility] hospitalist service was consulted for postoperative medical management during his stay and they continued to follow the patient. On his first postoperative day, he had no complaints. Pain was a 3/10. Denied chest pain or shortness of breath. Vital signs were stable. He was afebrile. Dressings clean, dry and intact. Neurovascularly intact. Toes were mobile and hemoglobin was 12.0. He was started on physical therapy protocol and continued on DVT prophylaxis and pain management and medical management per [facility]. Plans were for home health services upon discharge. He progressed well with his physical therapy and was remaining medically stable and it was felt he could be discharged to home on 10/11/2018. For further review, please see chart. LABORATORY AND X-RAY DATA: As per chart. DISCHARGE INSTRUCTIONS: The patient was discharged to home in satisfactory condition on 10/11/2018. DIET: Regular. ACTIVITY: Weightbearing as tolerated, with a walker on the right lower extremity. Follow TK instruction sheets and special care instructions as noted and follow up with Dr. Ramírez in 2 weeks. The patient to call for appointment if one has not been made for you. DISCHARGE MEDICATIONS: Acetaminophen 1000 mg p.o. q. 8 hours, clindamycin 300 mg p.o. t.i.d., Colace 100 mg p.o. b.i.d., oxycodone 5-10 mg p.o. q. 6 hours p.r.n. Resume home meds as listed and stop taking his previous acetaminophen benefit dosage and diclofenac.
== END 2018-10-11 12:43 | disposition home health service (06) | DRG 470 ==
LOC: ASU 08:16 → 3E 13:13

== ENCOUNTER 2022-07-19 07:39 | Observation (INO) ==
--- NOTE | 2022-05-31 14:39 | PAT Medication Instructions ---
Medication Instructions Date of Service May 31, 2022 Home Medications amlodipine 10 mg tablet (Norvasc) 10 mg PO QAM aspirin 81 mg tablet,delayed release (Justin Low Dose Aspirin) 81 mg PO QAM atorvastatin 40 mg tablet 40 mg PO HS clopidogrel 75 mg tablet (Plavix) 75 mg PO QAM hydrochlorothiazide 12.5 mg capsule 12.5 mg PO QAM lisinopril 20 mg tablet 20 mg PO QAM lorazepam 0.5 mg tablet (Ativan) 0.5 mg PO BID PRN acetaminophen 500 mg tablet 500 - 1,000 mg PO Q6H PRN clindamycin HCl 300 mg capsule 300 mg PO UD PRN BEFORE DENTAL APT diclofenac sodium 1 % topical gel 4 g topical BID gabapentin 100 mg capsule 100 mg PO UD latanoprost 0.005 % eye drops 1 drp OPB QPM multivitamin 1 tab PO QAM tadalafil 10 mg tablet (Cialis) 10 - 20 mg PO DAILY PRN Continue as directed clindamycin HCl 300 mg capsule 300 mg PO UD PRN BEFORE DENTAL APT gabapentin 100 mg capsule 100 mg PO UD ASK your surgeon for instructions diclofenac sodium 1 % topical gel 4 g topical BID ASK your prescriber and surgeon clopidogrel 75 mg tablet (Plavix) 75 mg PO QAM DO NOT take the morning of surgery hydrochlorothiazide 12.5 mg capsule 12.5 mg PO QAM lisinopril 20 mg tablet 20 mg PO QAM multivitamin 1 tab PO QAM tadalafil 10 mg tablet (Cialis) 10 - 20 mg PO DAILY PRN Take morning of surgery With a small sip of water, OTHERWISE NOTHING TO EAT OR DRINK AFTER MIDNIGHT: amlodipine 10 mg tablet (Norvasc) 10 mg PO QAM aspirin 81 mg tablet,delayed release (Justin Low Dose Aspirin) 81 mg PO QAM (unless directed otherwise by surgeon) lorazepam 0.5 mg tablet (Ativan) 0.5 mg PO BID PRN(if needed) acetaminophen 500 mg tablet 500 - 1,000 mg PO Q6H PRN(if needed) Take evening before surgery atorvastatin 40 mg tablet 40 mg PO HS lorazepam 0.5 mg tablet (Ativan) 0.5 mg PO BID PRN(if needed) acetaminophen 500 mg tablet 500 - 1,000 mg PO Q6H PRN(if needed) latanoprost 0.005 % eye drops 1 drp OPB QPM Other Notes If you have any questions please call us at [phone] or [phone] or [phone] or [phone]
--- NOTE | 2022-06-06 12:17 | Anesthesiology Consultation ---
Date of Service June 06, 2022 Assessment & Plan (1) Encounter for pre-operative examination: Chart Review Chart Review: Acceptable Risk for Surgery (pending PCP clearance (07/04/22) and cardio clearance (06/20/22)) and Patient seen in Pre Admission Testing - Awaiting PCP clearance- 07/04/22 - Awaiting cardio clearance - Dr. Stokes at [facility]- 06/20/22 - Pt states he has stress urinary incontinence (mild) - concerned during surgery during transfers from table to table - would like pad placed if possible DUE TO VISCOUS DEGENERATION- TAPE EYES VERY LIGHTLY IF NEEDED DUE TO ELEVATED PRESSURES Pt is NOT a Same Day Joint candidate due to medical comorbidities Per [facility] appt on 06/06/22, patient denies any recent travel or large group activities. Pt is vaccinated for Covid. Pt tested Covid positive with home test 05/02/22- symptoms have since resolve. Preop Covid testing done at [facility] appt 06/06/22= negative. Educated on importance of using Covid precautions one week prior to surgery Right TKA 10/10/18= Done under [place] with Grade 1 view with Glidescope #4. ETT #8.0. "Attempted spinal. Monitors placed; right adductor canal block placed. See notes , unsuccessful attempts. Switched to GETA. L3-4, L4-5- 4 attempts for SAB." Teaching & Discussion Pre-Anesthesia Teaching/Discussion Notes: Instructed NPO after midnight before surgery,except medications with 15 cc of water. Medication instructions provided according to the [facility] guidelines. History Surgery Operation Date: 07/19/22 07:15 Proposed Procedures p Left Total Knee Arthroplasty - Tito Ramírez DO Height/Weight Height: 5 ft 9 in Weight: 112.2 kg Allergies Allergy/AdvReac Type Severity Reaction Status Date / Time Penicillins Allergy Unknown A CHILD Verified 05/26/22 12:31 Medications Home Medications Medication Instructions Recorded Confirmed Last Taken amlodipine 10 mg tablet (Norvasc) 10 mg PO QAM 09/11/18 05/26/22 10/10/18 06:30 aspirin 81 mg tablet,delayed 81 mg PO QAM 09/11/18 05/26/22 10/09/18 07:00 release (Justin Low Dose Aspirin) atorvastatin 40 mg tablet 40 mg PO HS 09/11/18 05/26/22 10/09/18 23:00 clopidogrel 75 mg tablet (Plavix) 75 mg PO QAM 09/11/18 05/26/22 10/03/18 hydrochlorothiazide 12.5 mg capsule 12.5 mg PO QAM 09/11/18 05/26/22 10/09/18 07:00 lisinopril 20 mg tablet 20 mg PO QAM 09/11/18 05/26/22 10/09/18 07:00 lorazepam 0.5 mg tablet (Ativan) 0.5 mg PO BID PRN Anxiety 09/11/18 05/26/22 10/10/18 07:00 acetaminophen 500 mg tablet 500 - 1,000 mg PO Q6H PRN Pain 05/26/22 05/26/22 Unknown clindamycin HCl 300 mg capsule 300 mg PO UD PRN BEFORE DENTAL APT. 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 LIGHTLY DUE TO PRESSURE Glaucoma High cholesterol History of COVID-19 05-01-22>SYMPTOMS RESOLVED History of prostate cancer September 2020- S/p prostatectomy History of stroke 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) S/P THROMBECTOMY + CEREBRAL ANGIOPLASTY; 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 Hypertension Nerve pain RT KNEE>REASON FOR GABAPENTIN Obesity PVCs (premature ventricular contractions) OCCASIONAL PALPITATIONS> 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 ordered cardio clearance 06/20/22 Exercise / Class Metabolic Activity II 4-5 Yardwork/Stairs/Walk up hill (one flight of stairs - no chest pain or SOB ) Past Family History Family History Aunt Family hx of colon cancer Other No family history of adverse response to anesthesia Past Surgical History Surgical History H/O prostatectomy History of brain surgery THROMBECTOMY + CEREBRAL ANGIOPLASTY 20132 CVA History of colonoscopy History of surgical procedure on eye proper using laser / GLAUCOMA History of total knee replacement RT Hx of arthroscopic knee surgery RT Past Anesthesia History No Hx of Anesthesia Complications and No Family Hx of Anesthesia Complications (with exception to mother - PONV ) History of PONV No Hx of PONV and No Hx of Motion Sickness Social History Smoking Status: Former smoker tobacco type: cigarettes Do You Dip or Chew Tobacco: No Smoking End Date: "SOCIAL SMOKER DECADES AGO" Hx Alcohol Use: Yes Alcohol type: beer alcohol intake frequency: a few times a month Hx Substance Use: No Review of Systems Occ reflux- mild Hx of snoring- hx of sleep study- "a long time ago"- no JEAN PIERRE at that time Patient denies chest pain, shortness of breath, dyspnea on exertion, cough, wheezing, palpitations. No hx of seizures, stroke, [place]. No hx of blood clots or blood transfusions Physical Exam Vital Signs VITALS BP 157/77 P 73 TEMP 98.2 SP02 97% RESP 16 Constitutional no acute distress ENMT Mouth: no TMJ clicking Thyromental Distance: > or= 3.5 Finger Breadths (3.5) Mallampati Class: II Neck + thick neck and + limited neck extension (mild) Respiratory normal respiratory effort; no respiratory distress Auscultation: lungs clear to auscultation bilaterally; no wheezes Cardiovascular Rate/Rhythm: regular rate and regular rhythm Heart Sounds: no murmur Vessels: no carotid bruit Heart sounds mildly diminished throughout Musculoskeletal Spine: no pain with cervical ROM Extremities: extremities normal to inspection Psychiatric Orientation: alert Lab Results Anesthesia Preop Results Results Anesthesia Widget: WBC 5.33 K/ul (4.8-10.8) 06/06/22 Hgb 15.4 g/dl (14.0-18.0) 06/06/22 Hct 45.2 % (40.1-51.0) 06/06/22 Plt 178 K/uL (130-400) 06/06/22 Na 140 mmol/L (136-145) 06/06/22 K 4.1 mmol/L (3.5-5.1) 06/06/22 Cl 103 mmol/L (98-107) 06/06/22 CO2 31 mmol/L (21-32) 06/06/22 BUN 18 mg/dl (6-23) 06/06/22 Creat 0.84 mg/dl (0.6-1.4) 06/06/22 Glucose Level 98 mg/dl (70-99(Fasting)) 06/06/22 PT 10.8 Seconds (9.0-12.0) 06/06/22 PTT 26.3 Seconds (21.0-31.0) 06/06/22 INR 1.0 (0.9-1.1) 06/06/22 HA1c 5.9 % (4.5-5.6) H 06/06/22 Urine Color Yellow 06/06/22 Urine Appearance Clear (Clear) 06/06/22 Urine pH 6.5 (4.5-7.5) 06/06/22 Urine Specific [place] 1.014 (1.000-1.030) 06/06/22 Urine Protein Negative (Negative) 06/06/22 Urine Glucose (UA) Negative (Negative) 06/06/22 Urine Ketones Negative (Negative) 06/06/22 Urine Blood Negative (Negative) 06/06/22 Urine Nitrite Negative (Negative) 06/06/22 Urine Bilirubin Negative (Negative) 06/06/22 Urine Urobilinogen Negative (Negative) 06/06/22 Urine Leukocyte Esterase Negative (Negative) 06/06/22 Blood Type A Negative 06/06/22 Antibody Screen NEGATIVE 06/06/22 Testing Electrocardiogram Date: 06/06/22 Findings: + NSR @ (76bpm ) Nonspecific intra-ventricular conduction block When compared to EKG from September 17, 2018- PVCs are no longer present, QRS axis shifted left, T wave inversion no longer evident in inferior leads per cardio. Chest X-Ray Date: 06/06/22 Findings: + NAD FINDINGS: PA and lateral chest radiographs are compared to study dated 09/17/2018. The cardiomediastinal silhouette is top normal for projection noting atherosclerotic calcification of the thoracic aorta. The lungs and pleural spaces are clear. There is no pneumothorax. The bony thorax appears intact. Minimal compression deformities are noted in the thoracic spine. Echocardiogram Date: 01/28/20 Study done in comparison to Aug 2018 study- moderate to extreme technical difficulty secondary to poor acoustic windows. Dilated left ventricle with increased wall thickness and advanced hypertensive heart disease changes. Wall motion abnormality more pronounced on the inferoanterolateral segment, correlate clinically. (Suspicion for ischemic cardiomyopathy) Low normal EF, 55% (was 66% in previous study) Persistence Grade I DD. Dilated left atrium. Stress Test Date: 08/28/18 Type: nuclear (LEXISCAN) Lexiscan stress test negative for ischemia. No evidence of reversible ischemia. LVEF 50%. Dilated LV cavity. No ventricular or supraventricular ectopy noted with Lexiscan infusion. COVID-19 Risk Screen Screening Information COVID-19 Screen Date: 06/06/22 Exposure 21 Days Family/Household +COVID Last 21 Days: No Exposure 10 Days Any COVID Exposure Last 10 Days: No Symptoms Last 10 Days Experienced COVID Sx Last 10 Days: No + COVID 0-90 Days COVID + in Last 0-90 Days: Yes + COVID Test 0-10 Day: No + COVID Test 11-90 Day: Yes Date/Place of COVID-19 Test: 05/02/22- Home test What were Your COVID-19 Symptoms: Congestion, sneezing, mild cough Currently Having Symptoms Related to COVID: No current symptoms COVID Testing Site COVID-19 Preop/Pre-Procedure Testing Site: [facility] (06/06/22 negative) Risk Plan COVID Risk Plan: Last 11-D + CoV Test Patient Education COVID Preop Screening Education Complete: Yes
--- NOTE | 2022-06-27 13:00 | History & Physical Report ---
Date of Service June 27, 2022 date of surgery: 07/19/22 Procedure: Left Total Knee Arthroplasty Surgeon: Tito Ramírez Assessment & Plan (1) Arthritis of knee, left: Plan: Further care discussed with patient and at this point in time has failed conservative measures and would like to proceed with a left total knee replacement. Plan on discharge will be home with home health physical therapy. DVT prophylaxiswith TEDs, SCDs and will also place on aspirin 81 mg p.o. b.i.d. for a month postop. Patient will have follow up appointment in our office two weeks post op for staple/suture removal and re-evaluation. Patient otherwise has no other questions or concerns. The risks and benefits have been discussed including, but not limited to, risk of infection, nerve injury, stiffness, loss of motion, failure to improve, etc. Reasonable outcomes and options of treatment were discussed. An explanation of appropriate alternatives to the procedure that may be advantageous were discussed and their risks and benefits, as well as the risks and benefits of not proceeding with treatment. I offered to answer any additional inquiries concerning the treatment involved. All the patient's questions were answered. The patient is agreeable, understanding of the treatment plan and alternatives, and wishes to proceed with the treatment plan. History of Present Illness Chief Complaint: left knee pain Primary Care Provider: Kaylynn Salinas Niranjan is a pleasant 67-year-old male who presents for preop evaluation prior to his left total knee replacement. He states he been having pain in his knee for many years now which is gradually worsened and is now affecting his daily activities including walking standing using stairs. Rates his current pain is 7 out of 10. He has tried and failed previous cortisone injection as well as viscosupplementation without relief. He also has used oral anti-inflammatories and Tylenol. At this point time is failed conservative measures and like to proceed with left total knee replacement Allergies Allergy/AdvReac Type Severity Reaction Status Date / Time Penicillins Allergy Unknown A CHILD Verified 05/26/22 12:31 Home Medications Medication Instructions Recorded Confirmed Type amlodipine 10 mg tablet (Norvasc) 10 mg PO QAM 09/11/18 05/26/22 History aspirin 81 mg tablet,delayed 81 mg PO QAM 09/11/18 05/26/22 History release (Justin Low Dose Aspirin) atorvastatin 40 mg tablet 40 mg PO HS 03/05/19 11/17/22 History clopidogrel 75 mg tablet (Plavix) 75 mg PO QAM 09/11/18 05/26/22 History hydrochlorothiazide 12.5 mg capsule 12.5 mg PO QAM 09/11/18 05/26/22 History lisinopril 20 mg tablet 20 mg PO QAM 09/11/18 05/26/22 History lorazepam 0.5 mg tablet (Ativan) 0.5 mg PO BID PRN Anxiety 09/11/18 05/26/22 History acetaminophen 500 mg tablet 500 - 1,000 mg PO Q6H PRN Pain 05/26/22 05/26/22 History clindamycin HCl 300 mg capsule 300 mg PO UD PRN BEFORE DENTAL APT. 05/26/22 05/26/22 History diclofenac sodium 1 % topical gel 4 g topical BID 05/26/22 05/26/22 History gabapentin 100 mg capsule 100 mg PO UD 05/26/22 05/26/22 History latanoprost 0.005 % eye drops 1 drp OPB QPM 05/26/22 05/26/22 History multivitamin 1 tab PO QAM 05/26/22 05/26/22 History tadalafil 10 mg tablet (Cialis) 10 - 20 mg PO DAILY PRN Sexual 05/26/22 05/26/22 History Activity Past Med/Surg History Medical History Anxiety Eye disorder VISCOUS DEGENERATION- EYES NEED TO BE TAPED LIGHTLY DUE TO PRESSURE Glaucoma High cholesterol History of COVID-05-01-22>SYMPTOMS RESOLVED History of prostate cancer September 2020- S/p prostatectomy History of stroke 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) S/P THROMBECTOMY + CEREBRAL ANGIOPLASTY; 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 Hypertension Nerve pain RT KNEE>REASON FOR GABAPENTIN Obesity PVCs (premature ventricular contractions) OCCASIONAL PALPITATIONS> 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 for surgeon ordered cardio clearance 06/20/22 Surgical History H/O prostatectomy History of brain surgery THROMBECTOMY + CEREBRAL ANGIOPLASTY 2013 2/2 CVA History of colonoscopy History of surgical procedure on eye proper using laser 2/2 GLAUCOMA History of total knee replacement RT Hx of arthroscopic knee surgery RT Family History Aunt Family hx of colon cancer Other No family history of adverse response to anesthesia Social History Smoking Status: Former smoker Second Hand Exposure: Yes ( A CHILD); Hx Alcohol Use: Yes Alcohol type: beer Hx Substance Use: No Preferred Language: Czech Communication Ability: Effective Time Study Clerk Required: No Beliefs That Will Affect Care: None marital status: Current Living Situation: Spouse Feels Safe at Home: Yes Assistive Devices: Glasses Review of Systems Review of Systems: All systems reviewed & are unremarkable except as noted in HPI & below Constitutional: no fever, no chills and no sweats Respiratory: no cough and no dyspnea Cardiovascular: no chest pain, no dyspnea and no orthopnea Gastrointestinal: no abdominal pain, no nausea and no vomiting Musculoskeletal: as per Subjective / HPI Physical Exam Physical Exam: HT: 5ft 9in WT: 112.2kg Constitutional: WD/WN, vitals as above no acute distress Respiratory: normal respiratory effort, lungs clear to auscultation no respiratory distress, no labored breathing and does not use accessory muscles Cardiovascular: RRR, no murmur, no edema Gastrointestinal (Abdomen): normal bowel sounds, soft, nontender, no hepatosp lenomegaly Musculoskeletal: Knee: + knee abnormal to inspection (LEFT KNEE:), + effusion (+1 effusion), + limited ROM of knee (ROM 0/3/110), + knee ROM with crepitation, + joint line tenderness (medial joint line) and + Neda's sign positive; no deformity, no skin erythema, no ecchymosis, no valgus laxity, no varus laxity, anterior drawer test negative, Mandy's sign negative and pivot shift test negative Results & Data Results & Data ([facility]) Diagnostic Findings Left Knee X-ray: left knee series confirm advanced degenerative changes to the left knee, greatest medial compartments and patellofemoral joint, showing joint space narrowing, osteophyte formation and subchondral sclerosis. no acute bony pathology noted.
[~2022-07-19 07:39] MED LIST changes: -BUPIVACAINE 0.5 % 5 MG/1 ML PF 10ML VIAL ONE; -CLINDAMYCIN 600 MG/54 ML BAG IV SCH; +GABAPENTIN 300 MG CAP PO SCH; -GABAPENTIN 300 MG x 2 PO SCH; -ROPIVACAINE 0.5% 5 MG/ML 30 ML VIAL ONE; -ROPIVACAINE 0.5% HCL/PF 150 MG, BUPIVACAINE 0.5% MPF 30 ML, EPINEPHrine 30MG/30ML (OR U... INFIL SCH; +ROPIVACAINE 0.5% HCL/PF 150 MG, BUPIVACAINE 0.75% MPF 20 ML, EPINEPHrine 30MG/30ML (OR ... INSTIL SCH; -TRANEXAMIC ACID 1,000 MG **IV Intra-op IV SCH; -TRANEXAMIC ACID 1,000 MG **IV Pre-op IV SCH; +VANCOMYCIN HCL 1,750 MG in SODIUM CHLORIDE 0.9% 500 ML IV SCH
[2022-07-19] MEDS ORDERED: EPINEPHrine INJ 1 MG/ML AMP ONE (07:45)
[2022-07-19] MEDS ORDERED: BUPIVACAINE 0.5 % 5 MG/1 ML PF 10ML VIAL ONE (07:46)
[2022-07-19] MEDS ORDERED: BUPIVACAINE 0.25% 30 ML VIAL ONE (07:46)
[2022-07-19] MEDS ORDERED: DEXAMETHASONE SOD INJ 4 MG/ML VIAL ONE (07:46)
--- NOTE | 2022-07-19 09:04 | History & Physical Bridge Note ---
Date of Service July 19, 2022 History & Physical Bridge Note I have examined the patient, reviewed the History & Physical and in the interval since the performance of the History & Physical I have noted the following changes of clinical significance: no changes noted
[2022-07-19] MEDS ORDERED: fentaNYL citrate 100 MCG/2 ML VIAL ONE (09:47)
[2022-07-19] MEDS ORDERED: LIDOCAINE 2% 20 MG/ML 5 ML SYR IV ONE (09:47)
[2022-07-19] MEDS ORDERED: ONDANSETRON INJ 2 MG/ML 2 ML VIAL ONE (09:47)
[2022-07-19] MEDS ORDERED: MIDAZOLAM HCL 1 MG/ML 2ML VIAL ONE (09:47)
[2022-07-19] MEDS ORDERED: PROPOFOL IV EMULSION 10 MG/ML 20 ML VIAL IV ONE ×2 (09:47→11:54)
[2022-07-19] MEDS ORDERED: ORTHO JOINT ANESTHETIC ONE (10:50)
[2022-07-19] MEDS ORDERED: ePHEDrine sulfate 50 MG/ML AMP IV PRN (10:51)
[2022-07-19] MEDS ORDERED: ONDANSETRON INJ 2 MG/ML 2 ML VIAL IV PRN ×2 (10:51→14:24)
[2022-07-19] MEDS ORDERED: ATROPINE SULFATE 0.1 MG/ML 10ML SYR IV PRN (10:51)
[2022-07-19] MEDS ORDERED: fentaNYL citrate 100 MCG/2 ML VIAL IV PRN (10:51)
[2022-07-19] MEDS ORDERED: KETAMINE 50 MG/5 ML SYRINGE ONE (11:26)
[2022-07-19] MEDS ORDERED: PHENYLEPHRINE HCL 10 MG/ML VIAL ONE (12:09)
--- NOTE | 2022-07-19 12:22 | Operative Report ---
Post Operative Report Pre & Post Diagnosis Operation Date: 07/19/22 10:45 Pre-Op Diagnosis: Arthritis of knee, left Post-Op Diagnosis: Arthritis of knee, left I identified the patient and participated in the time-out.: Yes Procedure Operation Date: 07/19/22 10:45 Actual Procedures p Left Total Knee Arthroplasty utilizing [employer] 2 patient matched total knee arthroplasty size femur 6 tibia 6 polyten patella 35 nadine- Tito Ramírez DO Surgeon Tito Ramírez DO Senior Information Security Engineer Chauncey CHAPMAN Estimated Blood Loss 5 Findings Consistent with Post-Op Diagnosis Patient presents with severe end-stage tricompartmental degenerative joint disease varus alignment subchondral sclerosis marginal osteophytes eburnated [id number] moderate to large effusion Specimens Bone and cartilage Drains Medium bore Hemovac Anesthesia Type MAC Spinal Regional Complications none Disposition Accompanied Patient To Recovery: No Disposition: Recovery Room Indications Patient presents with severe end-stage DJD having failed attempted conservative management occluding physical therapy anti-inflammatories relative rest activity modification corticosteroid injection viscosupplementation above intraoperative findings were noted Description of Procedure After proper prepping and draping of the left lower extremity anterior midline incision was made over the region of the extensor extensor mechanism after meticulous hemostasis was obtained and maintained in subcutaneous tissues a medial parapatellar incision was made The patella was subluxed lateralward the medial lateral gutter were cleaned from any hypertrophic synovitis and scar tissue of the distal femoral block was placed and the distal femoral osteotomy cut was made subsequently the chamfers anterior and posterior osteotomy cuts were made utilizing the 4-in-1 block the tibia was subsequently subluxed anteriorward medial and ateral meniscal remnants were excised in their entirety remnants of the anterior and posterior cruciate ligaments were excised in their entirety excellent exposure of the proximal tibia was obtained the tibial osteotomy guide was placed on the proximal tibial osteotomy cut was made once again the knee was irrigated with copious amounts of sterile saline solution the patella was subsequently everted lateralward thickened scar tissue around the patella was removed the patella was subsequently cut utilizing a freehand technique and was drilled prepared for final preparation and placement of patella socially flexion-extension gaps were checked and the equal and symmetric trials were placed to the appropriate femoral and tibial trials with poly-spacer being placed for equal flexion and extension gaps and full range of motion including extension to 0 and flexion to 140 the trial components after having been taken to recovery range of motion was subsequently removed meticulous hemostasis was obtained and maintained subsequently a knee block injection of joint cocktail including ropivacaine 0.5% 150 mg. Bupivacaine 0.5% epinephrine 1-200,030 mL's toradol 30 mg dexamethasone 4 mg ketamine 10 mg clonidine 100 micrograms normal saline solution 30 mg was infiltrated into the soft tissues of the posterior knee medial lateral gutters and periosteal synovium special attention was paid to protect neurovascular structures at all times subsequently trial components having been removed the knee was irrigated with sterile saline solution. debris was removed the proximal tibia was subsequently prepared and was made ready for the placement of the tibial component tibial component was also cemented and tamped into position the femoral component was subsequently placed and cemented in the position the patellar component was subsequently cemented in position because hemostasis once again obtained and maintained wound having been thoroughly irrigated with debridement and debridement lavage was performed as well as a medial parapatellar incision closed with #1 Vicryl in interrupted fashion subcutaneous was closed with #2 Vicryl skin was closed with skin clips. PA-C was necessary for prepping and drapping as well as wound closure of deep fascia Sub cutaneous tissue and skin and was necessary for the case. A sterile compressive dressing was placed patient was taken to recovery in stable condition of report dictated by Darrell I attest to the content of the Intraoperative Record and any orders documented therein. Any exceptions are noted below.Due to the complex nature of the procedure, the entire surgery was performed with the operational assistance of Chauncey CHAPMAN. The sound assistant, under direct supervision, was involved in the actual performance of all aspects of the surgical procedure including hemostasis, tissue retraction and incision, instrument management, patient positioning, and wound closure. I attest to the content of the Intraoperative Record and any orders documented therein. Any exceptions are noted below.
[2022-07-19] MEDS ORDERED: ePHEDrine sulfate 50 MG/ML AMP ONE (12:28)
--- NOTE | 2022-07-19 13:34 | XRay Report ---
XR knee LT 1 or 2V routine CLINICAL HISTORY: Surgical Post Op TECHNIQUE: 2 views of the left knee were obtained. Comparison: Comparison is made to MRI left knee 05/25/2022 FINDINGS: Patient is status post total knee arthroplasty with expected postsurgical changes including soft tiss ue swelling and subcutaneous emphysema. No periarticular lucency or hardware fracture is seen. IMPRESSION: Expected postoperative appearance status post placement of total knee arthroplasty. ACT 112: Negative or not required by law. Electronically signed by: Castillo Laguerre M.D. 07/19/2022 1:33 PM
--- NOTE | 2022-07-19 14:04 | Anesthesiology Progress Note ---
Date of Service July 19, 2022 Anesthesia Post Procedure Vital Signs Vital Signs: Temp Pulse Pulse Resp BP BP Pulse Ox 07/19/22 13:45 85 15 127/70 93 07/19/22 13:35 85 13 123/65 93 07/19/22 13:25 36.2 C L 91 H 20 132/66 95 07/19/22 13:15 90 15 138/72 94 07/19/22 13:08 36.3 C L 90 22 126/73 97 07/19/22 08:15 36.8 C 77 20 179/86 H 98 O2 Del Method 07/19/22 13:45 Room Air 07/19/22 13:35 Room Air 07/19/22 13:25 Room Air 07/19/22 13:15 Room Air 07/19/22 13:08 Room Air 07/19/22 08:15 Room Air Pain Intensity Left Knee: Pain Intensity: 0 Transfer of Care Handoff Completed per policy Notes Mental Status: alert / awake / arousable Patient Amnestic to Procedure: Yes Nausea / Vomiting: adequately controlled Pain: adequately controlled Airway Patency, RR, SpO2: stable & adequate BP & HR: stable & adequate Hydration State: stable & adequate Neuraxial Anesthesia: was administered and sensory block is resolving Anesthetic Complications: no major complications apparent
[2022-07-19] MEDS ORDERED: LORazepam 0.5 MG TAB PO PRN (14:24)
[2022-07-19] MEDS ORDERED: VANCOMYCIN CONSULT ACTIVE PRN (14:24)
[2022-07-19] MEDS ORDERED: bisacodyL 10 MG SUPP PR PRN (14:24)
[2022-07-19] MEDS ORDERED: oxyCODONE HCL IR 5 MG TAB (IMMEDIATE RELEASE) PO PRN (14:24)
[2022-07-19] MEDS ORDERED: NALOXONE HCL 0.4 MG/1 ML VIAL/CARP IV PRN (14:24)
[2022-07-19] MEDS ORDERED: HYDROmorphone INJ 0.5 MG/0.5 ML SYR IV PRN (14:24)
[2022-07-19] MEDS ORDERED: MAGNESIUM HYDROXIDE SUSP 30 ML UDC PO PRN (14:24)
[2022-07-19] MEDS ORDERED: diphenhydrAMINE 50 MG/ML VIAL IV PRN (14:24)
--- NOTE | 2022-07-19 15:42 | Hospitalist Consultation ---
Date of Consultation July 19, 2022 Assessment & Plan (1) Status post left knee replacement: -Patient is currently afebrile, hemodynamically stable, and stable on RA -Analgesia, perioperative abx, IV fluids, and DVT PPX per the primary team -Agree with am CBC and BMP, we will follow up tomorrow -Added daily famotidine while admitted for stress ulcer prophylaxis (2) HTN (hypertension): -Hemodynamically stable -Agree with continuing amlodipine and lisinopril tomorrow as long as the patient is stable and renal function is stable -Agree with restarting HCTZ tomorrow as long as he is stable and with stable renal function and electrolytes (3) Dyslipidemia: -Continue statin (4) History of ischemic right MCA stroke: -Patient is at his neurologic baseline with only slight weakness in the left hand -Agree with continuing aspirin tonight and plavix tomorrow as long as he is stable and without obvious bleeding Plan The patient was discussed with Dr. Burrell at the time of the consult Supervising Physician Co-Signing Physician Notes I personally saw and examined the patient. I verified all reis points and agree with Cristobal Glaser PA-C with the following exceptions and/or additions: 67 year old male POD#0 left total knee arthroplasty. No acute concerns or questions from the patient O/E A&Ox3, HS1+2, no murmurs, Chest CTAB, Abdo SNT A/P Pain/VTE/bowel management per orthopedics Ok to restart HTN medications tomorrow with hold parameters placed History of Present Illness Reason for Consultation: Post-op medical management Requesting Physician: Tito Ramírez DO Attending Physician: Dr. Garrett Burrell History of Present Illness Lucho is a 67 year old male with a PMH significant for HTN, dyslipidemia, history of previous right MCA stroke, and OA who presented to the [facility] on 07/19/22 for elective left total knee arthropathy with Dr. Cox. Per the operative report, there were no reported intraoperative complications, anesthesia was listed as "[facility]", and EBL was listed as 5cc. Review of the patient's vitals signs shows him to be afebrile, hemodynamically stable, and stable on RA. At the time of the exam the patient was resting comfortably in bed in no acute distress with his sitting bedside. He states that his left leg is currently without pain from the procedure but he is starting to feel the nerve block wear off. he confirmed the he has some slight weakness in his left hand after his previous stroke but otherwise has no other complications. He Has no other complaints at the time of my exam and confirmed that he took his amlodipine and aspirin this morning prior to his procedure. Please refer to Dr. Burrell's attestation for any changes to the treatment plan Allergies Allergy/AdvReac Type Severity Reaction Status Date / Time Penicillins Allergy Unknown A CHILD Verified 07/19/22 08:11 Home Medications Medication Instructions Recorded Confirmed Type amlodipine 10 mg tablet (Norvasc) 10 mg PO QAM 09/11/18 07/19/22 History atorvastatin 40 mg tablet 40 mg PO HS 09/11/18 07/19/22 History clopidogrel 75 mg tablet (Plavix) 75 mg PO QAM 09/11/18 07/19/22 History hydrochlorothiazide 12.5 mg capsule 12.5 mg PO QAM 09/11/18 07/19/22 History lisinopril 20 mg tablet 20 mg PO QAM 09/11/18 07/19/22 History lorazepam 0.5 mg tablet (Ativan) 0.5 mg PO BID PRN Anxiety 09/11/18 07/19/22 History clindamycin HCl 300 mg capsule 300 mg PO UD PRN BEFORE DENTAL APT. 05/26/22 07/19/22 History diclofenac sodium 1 % topical gel 4 g topical BID 05/26/22 07/19/22 History gabapentin 100 mg capsule 200 mg PO UD 05/26/22 07/19/22 History latanoprost 0.005 % eye drops 1 drp OPB QPM 05/26/22 07/19/22 History multivitamin 1 tab PO QAM 05/26/22 07/19/22 History tadalafil 10 mg tablet (Cialis) 10 - 20 mg PO DAILY PRN Sexual 05/26/22 07/19/22 History Activity acetaminophen 500 mg tablet 1,000 mg PO Q8 #60 tabs 07/20/22 Rx (Tylenol Extra Strength) aspirin 81 mg tablet,delayed 81 mg PO BID #60 tabs 07/20/22 Rx release oxycodone 5 mg tablet 5 - 10 mg PO .Q4h-6h PRN pain #30 07/20/22 Rx tabs sulfamethoxazole 800 1 tab PO BID #28 tabs 07/20/22 Rx mg-trimethoprim 160 mg tablet (Bactrim DS) Patient History Medical History Anxiety Eye disorder VISCOUS DEGENERATION- EYES NEED TO BE TAPED LIGHTLY DUE TO PRESSURE Glaucoma High cholesterol History of COVID-05-01-22>SYMPTOMS RESOLVED History of prostate cancer September 2020- S/p prostatectomy History of stroke 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) S/P THROMBECTOMY + CEREBRAL ANGIOPLASTY; 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 Hypertension Nerve pain RT KNEE>REASON FOR GABAPENTIN Obesity PVCs (premature ventricular contractions) OCCASIONAL PALPITATIONS> 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 for surgeon ordered cardio clearance 06/20/22 Surgical History H/O prostatectomy History of brain surgery THROMBECTOMY + CEREBRAL ANGIOPLASTY 2013 08/ CVA History of colonoscopy History of surgical procedure on eye proper using laser 2/ GLAUCOMA History of total knee replacement RT Hx of arthroscopic knee surgery RT Family History Aunt Family hx of colon cancer Other No family history of adverse response to anesthesia Social History Smoking Status: Never smoker Smoking End Date: "SOCIAL SMOKER DECADES AGO"; Second Hand Exposure: Yes ( A CHILD); Do You Dip or Chew Tobacco: No; Hx Alcohol Use: Yes Alcohol type: beer Hx Substance Use: No Preferred Language: Czech Communication Ability: Effective Surgical Device Sales Representative Required: No Beliefs That Will Affect Care: None marital status: Current Living Situation: Spouse Feels Safe at Home: Yes Safety Concerns: Feels Safe At This Time Assistive Devices: Walker Review of Systems Review of Systems: Denies current fever, chills, headache, changes in vision, hearing, taste, and smell, chest pain, SOB, cough, abdominal pain, nausea, vomiting, diarrhea, hematemesis, melena, dysuria, hematuria, and recent falls. All systems have been reviewed and are otherwise negative. Physical Exam Physical Exam: Physical Exam: General: In no acute distress, stated age, well-nourished, good hygiene HEENT: Normocephalic, atraumatic, no scleral icterus, pupils around round, symmetrical, and reactive to light, moist mucus membranes, trachea midline, no thyromegaly Chest/Pulm: No respiratory distress, symmetrical chest expansion, clear breath sounds throughout Cardiac: RRR, 2/5 systolic murmur noted (patient confirms this is not new) Abdomen: Negative for ascites and bruising, normoactive bowel sounds, soft, non-tender to palpation throughout Musculoskeletal: Patient with LLE currently with wrap and brace in place, drain is in place in the LLE and is without sings of infected contents, patient with intact sensation, motor function, and cap refill in the BL LE's Extremities: Radial, dorsalis pedis, and posterior tibial pulses are intact and symmetrical, no edema noted in the BL LE's Skin: Warm, dry, no rashes , lesions, or scars noted Neuro: Alert and oriented to person, place, month, year, and president, no focal defects, CN II-XII tested and intact, finger to nose test negative, no tremors noted Psych: No acute distress, calm and cooperative during the exam Results & Data Results & Data ([facility]) Vital Signs (Past 12 Hours) Vital Signs Temp Pulse Pulse Resp BP BP Pulse Ox 07/19/22 15:15 36.6 C 75 18 129/76 95 07/19/22 15:00 75 16 138/60 93 07/19/22 14:45 89 15 127/58 L 95 07/19/22 14:30 82 14 139/65 93 07/19/22 14:15 87 16 138/73 92 07/19/22 14:00 92 H 15 125/62 93 07/19/22 13:45 85 15 127/70 93 07/19/22 13:35 85 13 123/65 93 07/19/22 13:25 36.2 C L 91 H 20 132/66 95 07/19/22 13:15 90 15 138/72 94 07/19/22 13:08 36.3 C L 90 22 126/73 97 07/19/22 08:15 36.8 C 77 20 179/86 H 98 O2 Del Method 07/19/22 15:15 Room Air 07/19/22 15:00 Room Air 07/19/22 14:45 Room Air 07/19/22 14:30 Room Air 07/19/22 14:15 Room Air 07/19/22 14:00 Room Air 07/19/22 13:45 Room Air 07/19/22 13:35 Room Air 07/19/22 13:25 Room Air 07/19/22 13:15 Room Air 07/19/22 13:08 Room Air 07/19/22 08:15 Room Air Diagnostic Findings Knee X-Ray 07/19/22 13:10 XR knee LT 1 or 2V routine CLINICAL HISTORY: Surgical Post Op TECHNIQUE: 2 views of the left knee were obtained. Comparison: Comparison is made to MRI left knee 05/25/2022 FINDINGS: Patient is status post total knee arthroplasty with expected postsurgical change s including soft tissue swelling and subcutaneous emphysema. No periarticular lucency or hardware fracture is seen. IMPRESSION: Expected postoperative appearance status post placement of total knee arthroplasty. ACT 112: Negative or not required by law. Electronically signed by: Castillo Laguerre M.D. 07/19/2022 1:33 PM ECG Additional Comments: No ECg available at the time of the consult PG Care Time/CCT Total # of Minutes Spent Total Time Spent with Patient: Total time spent is greater than 50% in coordination of care (as documented) at patient's floor/unit and/or counseling patient: Coding Level of Care Code Established Pt INP/OBS CONSULT LVL 4, 60 MIN Patient Type Established Medical Decision Making Moderate Complexity Diagnoses Status post left knee replacement Z96.652 HTN (hypertension) I10 Dyslipidemia E78.5 History of ischemic right MCA stroke Z86.73
[2022-07-19] MEDS: ACETAMINOPHEN 500 MG TAB PO SCH ×2 (15:59→21:21)
[2022-07-19] MEDS: SODIUM CHLORIDE 0.9% 1000ML 1,000 ML IV SCH (16:00)
[2022-07-19] MEDS ORDERED: LATANOPROST 0.005% OP SOLN 2.5 ML BTL OPB SCH (21:00)
[2022-07-19] MEDS ORDERED: ATORVASTATIN 40 MG TAB PO SCH (21:00)
[2022-07-19] MEDS ORDERED: SENNA 8.6 MG TAB PO SCH (21:00)
[2022-07-19] MEDS: ASPIRIN 81 MG ECTAB PO SCH (21:18)
[2022-07-19] MEDS: DOCUSATE SODIUM 100 MG CAP PO SCH (21:19)
[2022-07-19] MEDS ORDERED: VANCOMYCIN HCL 1,750 MG in SODIUM CHLORIDE 0.9% 500 ML IV SCH (23:15)
[2022-07-20] MEDS: SODIUM CHLORIDE 0.9% 1000ML 1,000 ML IV SCH (03:47)
[2022-07-20] MEDS: ACETAMINOPHEN 500 MG TAB PO SCH ×2 (06:04→13:25)
--- NOTE | 2022-07-20 07:55 | Orthopedic Progress Note ---
Date of Service July 20, 2022 Assessment & Plan (1) Status post left knee replacement: Plan: Postop day #1 left total knee arthroplasty -PT/OT -Pain management as written -DVT prophylaxis: SCDs, teds, aspirin 81mg and Plavix -A.m. labs are pending -Discharge planning: Plan on possible discharge home today with home health. We will recheck drainage after PT. May have home health remove drain. Admission and Anticipated Discharge Date Admission Date: July 19, 2022 Subjective Patient is postop day #1 left total knee arthroplasty. Pain is well controlled. No other complaints. Denies chest pain, shortness of breath, nausea/vomiting/diarrhea, lightheadedness or dizziness. Review of Systems Review of Systems: All systems reviewed & are unremarkable except as noted in Subjective Physical Exam Physical Exam: Left knee dressing is clean, dry, intact. Patient complaining Angel wrap is a little tight. This was unwrapped and rewrapped looser. Toes are mobile with good dorsiflexion. No calf tenderness. Able to do a straight leg raise. Distally neurovascular status and sensation grossly intact. Constitutional: WD/WN, vitals as above Results & Data ([facility]) Vital Signs (Past 12 Hours) Vital Signs Temp Pulse Pulse Resp BP Pulse Ox O2 Del Method 07/20/22 07:25 36.8 C 72 16 136/71 97 Room Air 07/20/22 02:55 36.6 C 56 L 16 108/61 95 Room Air 07/19/22 21:18 Room Air 07/19/22 23:06 36.7 C 69 16 131/67 96 Room Air
[2022-07-20 08:09] LABS: Hematocrit (blood only) 36.6 % (40.1-51.0); Hemoglobin 12.4 g/dl (14.0-18.0); Mean Corpuscular Hemoglobin 31.6 pg (25.0-34.0); Mean Corpuscular Hgb Conc 33.9 g/dL (32.0-36.0); Mean Corpuscular Volume 93.4 fL (80.0-100.0); Mean Platelet Volume 11.5 fL (9.4-12.4); Platelet Count 175 K/uL (130-400); RDW Coefficient of Variation 12.8 % (11.5-14.5); RDW Standard Deviation 43.6 fL (36.4-46.3); Red Blood Count 3.92 M/uL (4.63-6.08); White Blood Count 15.23 K/ul (4.8-10.8)
[2022-07-20] MEDS: DOCUSATE SODIUM 100 MG CAP PO SCH (08:18)
[2022-07-20 08:31] LABS: BUN Creatinine Ratio 22.2 (10-20); Calcium 8.7 mg/dl (8.5-10.1); Creatinine Clr Calc Pharmacy 99.6 ml/min; Est GFR (African American) 102.8 ml/min; Est GFR (Non-African American) 88.7 ml/min; Potassium 4.5 mmol/L (3.5-5.1)
[2022-07-20] MEDS: ASPIRIN 81 MG ECTAB PO SCH (08:59)
[2022-07-20] MEDS ORDERED: amLODIPine BESYLATE 5 MG TAB PO SCH (09:00)
[2022-07-20] MEDS ORDERED: CLOPIDOGREL BISULFATE 75 MG TAB PO SCH (09:00)
[2022-07-20] MEDS ORDERED: FAMOTIDINE 20 MG TAB PO SCH (09:00)
[2022-07-20] MEDS ORDERED: hydroCHLOROthiazide 25 MG TAB PO SCH (09:00)
[2022-07-20] MEDS ORDERED: lisinopril 20 MG TAB PO SCH (09:00)
[2022-07-20] MEDS ORDERED: MULTIVITAMIN TAB PO SCH (09:00)
--- NOTE | 2022-07-20 11:07 | Hospitalist Progress Note ---
Date of Service July 20, 2022 Assessment & Plan (1) Status post left knee replacement: Plan: POD# 1 s/p Left Total Knee Arthroplasty utilizing [employer] 2 patient matched total knee arthroplasty size femur 6 tibia 6 polyten patella 35 nadine- Tito Ramírez, DO EBL 5cc WBC elevation likely 2nd to steroids, afebrile Hgb 15.4--> 12.4, acute blood loss anemia from surgery and dilutional from IVF Also resumed ASA. Holding plavix until tomorrow and monitoring drain output 625cc No lightheadedness/dizziness Pain control, antiemetics prn PT/OT consulted -- to go home, hopefully later today. Monitoring drainage output, maybe pulling prior to d/c vs monitoring overnight/resuming plavix for tomorrow Kidney function stable on repeat -- HCTZ resumed (note patient wanting to wait until he gets home to avoid needing to get up to bathroom multiple times back to [place], states will take tonight) Pepcid for stress ulcer proph Patient hopeful for d/c today. Contacted CM to see about arranging HH if needed to pull drain if discharged (2) HTN (hypertension): Plan: BP stable, 136/71 Continues on amlodipine, lisinopril Cr stable HCTZ resumed -- see above, waiting to take until he gets home tonight (3) Dyslipidemia: Plan: Continue statin (4) History of ischemic right MCA stroke: Plan: Patient is at his neurologic baseline with only slight weakness in the left hand Aspirin resumed, plavix to resume tomorrow given bleeding No increased weakness/other issues/no slurred speech/facial droop Plan Thank you for allowing hospitalist group to participate in the care of Mr Yepez Hospitalist service will sign off at this time. Please call with any questions/concerns Admission and Anticipated Discharge Date Admission Date: July 19, 2022 Supervising Physician Co-Signing Physician Notes PA Supervision Note: I did not personally see or examine the patient today, but I verified all reis points of ADELA Mireles's assessment and plan with the following exceptions/additions: None Subjective eval this morning, pain controlled at bedside hopeful for d/c to home today, wanting to wait for HCTZ given bathroom access til he gets home. plavix held this morning given drainage, plans to resume tomorrow. contacted CM to ensure HH arranged in case needing to remove drain- had not been arranged previously. eating/drinking, already moved his bowels questions/concerns addressed at this time. Review of Systems Review of Systems: All systems reviewed & are unremarkable except as noted in HPI & below Physical Exam Physical Exam: General: WD/WN male sitting up in recliner, dressed, NAD HEENT; head normocephalic, atraumatic, mmm trachea midline without deviation Resp: CTAB, no w/c/r, on room air CV: RRR, no significant m/r/g, no pitting edema/calf tenderness, pulses palpable GI: +BS, soft/NT : no cabello MSK/Neuro: moves all extremities, slight weakness R hand (baseline) prior R knee incision noted L dressing c/d/i, hemovac w/ bloody drainage cap refill wnl Skin: warm, dry Psych; AOX3, pleasant and cooperative Results & Data Results & Data ([facility]) Vital Signs (Past 12 Hours) Vital Signs Temp Pulse Pulse Resp BP Pulse Ox O2 Del Method 07/20/22 07:25 36.8 C 72 16 136/71 97 Room Air 07/20/22 02:55 36.6 C 56 L 16 108/61 95 Room Air 07/19/22 23:06 36.7 C 69 16 131/67 96 Room Air Laboratory Results 07/20/22 07/20/22 Range/Units 07:55 07:55 WBC 15.23 H (4.8-10.8) K/ul RBC 3.92 L (4.63-6.08) M/uL Hgb 12.4 L (14.0-18.0) g/dl Hct 36.6 L (40.1-51.0) % MCV 93.4 (80.0-100.0) fL MCH 31.6 (25.0-34.0) pg MCHC 33.9 (32.0-36.0) g/dL RDW Std Deviation 43.6 (36.4-46.3) fL RDW Coeff of Ze 12.8 (11.5-14.5) % Plt Count 175 (130-400) K/uL MPV 11.5 (9.4-12.4) fL Sodium 139 (136-145) mmol/L Potassium 4.5 (3.5-5.1) mmol/L Chloride 107 (98-107) mmol/L Carbon Dioxide 25 (21-32) mmol/L Anion Gap 7 (3-11) BUN 20 (6-23) mg/dl Creatinine 0.90 (0.6-1.4) mg/dl Est Cr Clr Drug Dosing 99.6 ml/min Est GFR ( Amer) 102.8 ml/min Est GFR (Non-Af Amer) 88.7 ml/min BUN/Creatinine Ratio 22.2 H (10-20) Glucose 131 H (70-99(Fasting)) mg/dl Calcium 8.7 (8.5-10.1) mg/dl Diagnostic Findings Knee X-Ray 07/19/22 13:10 XR knee LT 1 or 2V routine CLINICAL HISTORY: Surgical Post Op TECHNIQUE: 2 views of the left knee were obtained. Comparison: Comparison is made to MRI left knee 05/25/2022 FINDINGS: Patient is status post total knee arthroplasty with expected postsurgical cary es including soft tissue swelling and subcutaneous emphysema. No periarticular lucency or hardware fracture is seen. IMPRESSION: Expected postoperative appearance status post placement of total knee arthroplasty. ACT 112: Negative or not required by law. Electronically signed by: Castillo Laguerre M.D. 07/19/2022 1:33 PM PG Care Time/CCT Total # of Minutes Spent Total Time Spent with Patient: Total time spent is greater than 50% in coordination of care (as documented) at patient's floor/unit and/or counseling patient: Coding Level of Care Code 93267 SUB INP/OBS CARE 08/03MIN Diagnoses Status post left knee replacement Z96.652 HTN (hypertension) I10 Dyslipidemia E78.5 History of ischemic right MCA stroke Z86.73
--- NOTE | 2022-07-21 13:29 | Discharge Summary ---
Date of Service July 21, 2022 Admission HPI Per Admitting Provider Niranjan is a pleasant 67-year-old male who presents for preop evaluation prior to his left total knee replacement. He states he been having pain in his knee for many years now which is gradually worsened and is now affecting his daily activities including walking standing using stairs. Rates his current pain is 7 out of 10. He has tried and failed previous cortisone injection as well as viscosupplementation without relief. He also has used oral anti-inflammatories and Tylenol. At this point time is failed conservative measures and like to proceed with left total knee replacement Admission Exam Per Admitting Provider Physical Exam: HT: 5ft 9in WT: 112.2kg Constitutional: WD/WN, vitals as above no acute distress Respiratory: normal respiratory effort, lungs clear to auscultation no respiratory distress, no labored breathing and does not use accessory muscles Cardiovascular: RRR, no murmur, no edema Gastrointestinal (Abdomen): normal bowel sounds, soft, nontender, no hepatosplenomegaly Musculoskeletal: Knee: + knee abnormal to inspection (LEFT KNEE:), + effusion (+1 effusion), + limited ROM of knee (ROM 0/3/110), + knee ROM with crepitation, + joint line tenderness (medial joint line) and + eNda's sign positive; no deformity, no skin erythema, no ecchymosis, no valgus laxity, no varus laxity, anterior drawer test negative, Mandy's sign negative and pivot shift test negative Principal Diagnosis Left Knee Osteoarthritis Discharge Data Allergies Allergy/AdvReac Type Severity Reaction Status Date / Time Penicillins Allergy Unknown A CHILD Verified 07/19/22 08:11 Consultations 07/14/22 15:54 Consult Hospitalist Routine Procedures Performed Operation Date: 07/19/22 10:45 Actual Procedures p Left Total Knee Arthroplasty - iTto Ramírez DO Ordered Studies 07/19/22 05:00 US - OR guided needle placemen Routine Hospital Course (1) Status post left knee replacement: Patient:NIRANJAN HOOKS Sr Admit Date:07/19/22 MR#:[id number] Att Phy:Tito Ramírez,LidiaOAntonino Acct ID:[id number] Elizabeth Phy:Kaylynn Salinas M.D. Date:1955 [facility] Phy: Age:67 Location:3W Sex:M Room/Bed:[facility] cc: ~ *NOTICE TO RECEIVING LIBERTARIAN/AGENCY This information is strictly Confidential and protected under [place] law. [place] law prohibits you from making any further disclosure of this information unless further disclosure is expressly permitted by the written consent of the person to whom it pertains or is authorized by law. A general authorization for the release of medical or other information is not sufficient for this purpose. Hospital accepts no responsibility if the information is made available to any other person, INCLUDING THE PATIENT. Date of Service July 20, 2022 Assessment & Plan (1) Status post left knee replacement: Plan: Postop day #1 left total knee arthroplasty -PT/OT -Pain management as written -DVT prophylaxis: SCDs, teds, aspirin 81mg and Plavix -A.m. labs are pending -Discharge planning: Plan on possible discharge home today with home health. We will recheck drainage after PT. May have home health remove drain. Admission and Anticipated Discharge Date Admission Date: July 19, 2022 Subjective Patient is postop day #1 left total knee arthroplasty. Pain is well controlled. No other complaints. Denies chest pain, shortness of breath, nausea/vomiting/diarrhea, lightheadedness or dizziness. Review of Systems Review of Systems: All systems reviewed & are unremarkable except as noted in Subjective Physical Exam Physical Exam: Left knee dressing is clean, dry, intact. Patient complaining Angel wrap is a little tight. This was unwrapped and rewrapped looser. Toes are mobile with good dorsiflexion. No calf tenderness. Able to do a straight leg raise. Distally neurovascular status and sensation grossly intact. Constitutional: WD/WN, vitals as above Results & Data ([facility]) Vital Signs (Past 12 Hours) Vital Signs Temp Pulse Pulse Resp BP Pulse Ox O2 Del Method 07/20/22 07:25 36.8 C 72 16 136/71 97 Room Air 07/20/22 02:55 36.6 C 56 L 16 108/61 95 Room Air 07/19/22 21:18 Room Air 07/19/22 23:06 36.7 C 69 16 131/67 96 Room Air Signed By: <Electronically signed by Mehdi Titus PA-C> 07/20/22 0755 <Electronically signed by Luiz Amin MD> 07/20/22 1541 Created:07/20/22 0753 Total Time Total Time Spent Total Time Spent (In Minutes): 5 Discharge Plan Discharge Items Patient Disposition: Home - Home Health Services Reason For Visit: LEFT TKA Discharge Diagnosis: Left Knee Osteoarthritis Activity: Per Instructions section Weightbearing Comment: as tolerated with walker Non-emergency contact: Surgeon Call non-emergency contact if: you have any medication questions, your pain is not controlled, your temperature is above 101.5, your wound has increased redness and your wound has increased drainage Follow-up/Referrals: Tito Ramírez, [Surgeon] - (Follow up with Dr Ramírez or his PA in 2 weeks from the day of your surgery for your first post operative visit.) Kaylynn Salinas M.D. [Primary Care Provider] - Diet: Regular Addtl Attending Provider Instructions: ACTIVITY RECOMMENDATIONS: SELF CARE INSTRUCTIONS AFTER TOTAL KNEE REPLACEMENT A. You may need to continue a physical therapy program after discharge from the hospital. There are several options available to you. Your doctor will assist you in selecting the best one for you. 1. An out-patient facility 2 to 3 times a week for therapy or home therapy. 2. Continue working on all exercises taught to you in the hospital. Your goals should be to increase bending of your knee to 90 degrees and beyond and to fully straighten your knee. B. You may progress at your own pace from walking with a walker or crutches to a cane; then to no assistive devices. C. Make walking a part of your daily routine. Be up as much as comfortable with rest periods throughout the day. Rest with leg elevation is very important. Use the ice wrap frequently for the first 3-4 weeks. D. There are no restrictions on activities. You may ride in a car, shop, participate in policy writer sales and all social activities. E. Wear the long elastic stockings (NELSON hose) 20 hours a day for 2 weeks after surgery. They can be removed several times a day for laundering and for a bath. F. You may shower, no tub baths until cleared by your doctor. SPECIAL CARE INSTRUCTIONS: VERY IMPORTANT TO READ AND REVIEW A. There are a few signs you need to watch for after you are home. Call [facility] if you notice any of the followin. Increased severe knee pain. Some pain is expected especially when you exercise. 2. Increased swelling in your leg or knee; pain or swelling of the calf muscle in either lower leg. 3. Any fluid drainage from the incision. 4. Shortness of breath or chest pain. B. Please call [facility] at if you have any concerns or questions about your operation or recovery. The doctor or his nurse will return your call promptly. C. You must take antibiotics before dental work, bladder, bowel or other surgery. Your doctor will provide you with a permanent care to carry describing this precaution. IMPORTANT: * REMEMBER TO TAKE ASPIRIN, 81 MG, TWICE DAILY FOR 4 WEEKS UNLESS OTHERWISE DIRECTED. THIS IS YOUR BLOOD THINNER. * CALL IF INCREASED PAIN, REDNESS, DRAINAGE OR FEVER GREATER THAT 101. * WEAR NELSON HOSE 20 HOURS PER DAY FOR 2 WEEKS. * VANDANA Dressing- This is a large suction dressing covering your incision. This will help pull any excess drainage from the wound and allow your incision to heal properly. You may shower with this if you can keep the unit outside of the shower. If any bleeding or leakage is noted please call your doctor's office. This will remain on your incision for 7 days and then should be removed. This can be done yourself or by the home nursing staff if applicable. The entire unit is disposable once removed. Once removed, keep incision clean and dry. If redness or drainage is noted, please call your surgeon. . * After Vandana has been removed --> DERMABOND Prineo- This is a mesh tape dressing that is covered with glue. It should remain in place until the incision is properly healed, usually 10-14 days. This dressing is designed to naturally slough off. You may trim the excess mesh tape as it peels off. Incision may be briefly wet in a shower. Dry immediately by blotting with a clean, dry towel. Do not bath or swim until instructed by your doctor. Do not scratch, rub, or pick at the dressing. Do not apply any topical ointments or lotions until dressing is completely removed and/or instructed by your doctor. There may be a small piece of suture material at one end of your incision. Do not pull or trim this. If it is bothersome or catching on clothing, you may cover it with a band-aid. Home health will remove your hemovac drain tomrrow FOLLOW UP VISIT: If appointment is not already scheduled: Please call [facility] to make a follow-up appointment for 2 weeks after your surgery at . Stand-Alone Forms: My [facility], Pain - Opioid Pain Management, Smoking Cessation Medications and DC Order Prescriptions: New aspirin 81 mg Tablet,Delayed Release (Dr/Ec) 81 mg PO BID Qty: 60 0RF acetaminophen [Tylenol Extra Strength] 500 mg Tablet 1,000 mg PO Q8 Qty: 60 0RF oxycodone 5 mg Tablet 5 - 10 mg PO .Q4h-6h MDD 6 PRN (Reason: pain) Qty: 30 0RF Rx Instructions: Ongoing therapy, Dr. Ramírez supervising sulfamethoxazole-trimethoprim [Bactrim DS] 800-160 mg tablet 1 tab PO BID Qty: 28 0RF Continued atorvastatin 40 mg Tablet 40 mg PO HS lisinopril 20 mg Tablet 20 mg PO QAM clopidogrel [Plavix] 75 mg Tablet 75 mg PO QAM lorazepam [Ativan] 0.5 mg Tablet 0.5 mg PO BID PRN (Reason: Anxiety) amlodipine [Norvasc] 10 mg Tablet 10 mg PO QAM hydrochlorothiazide 12.5 mg Capsule 12.5 mg PO QAM multivitamin Tablet 1 tab PO QAM latanoprost 0.005 % Drops 1 drp OPB QPM clindamycin HCl 300 mg Capsule 300 mg PO UD PRN (Reason: BEFORE DENTAL APT.) gabapentin 100 mg Capsule 200 mg PO UD Label Comments: TAKES 200MG QAM/100MG AT LUNCH/300MG AT HS tadalafil [Cialis] 10 mg Tablet 10 - 20 mg PO DAILY PRN (Reason: Sexual Activity) diclofenac sodium 1 % Gel 4 g TOPICAL BID Discontinued aspirin [Justin Low Dose Aspirin] 81 mg Tablet,Delayed Release (Dr/Ec) 81 mg PO QAM acetaminophen 500 mg Tablet 500 - 1,000 mg PO Q6H PRN (Reason: Pain) Discharge Orders: Discharge Order (Routine); Ordered 07/20/22 Ordered By: Mehdi Titus Admission Data Admit Date/Time: 07/19/22 13:10 Attending Provider: Tito Ramírez Admit Provider: Tito Ramírez Primary Care Provider: Kaylynn Salinas Other Providers: Garrett Wiley Natalie B. Other Interventions: Discharge Summary Assessment (RN) Last Done: 07/20/22 12:38
== END 2022-07-20 13:37 | disposition home health service (06) ==
LOC: PACUINP 07:39 → ASU 07:39 → 3W 15:16
DX: E78.5 Hyperlipidemia, unspecified; Z79.899 Other long term (current) drug therapy; Z79.82 Long term (current) use of aspirin; Z79.02 Long term (current) use of antithrombotics/antiplatelets; Z88.0 Allergy status to penicillin; Z86.73 Personal history of transient ischemic attack (TIA), and cerebral infarction without residual deficits; I10 Essential (primary) hypertension; Z96.651 Presence of right artificial knee joint; M17.12 Unilateral primary osteoarthritis, left knee; Z87.891 Personal history of nicotine dependence